=== PATIENT | female | born 1930 | race Hispanic/Latino ===

== ENCOUNTER 2017-07-02 19:49 | Inpatient (IN) | payer MEDICARE, OTHER ==
[2017-07-02 19:56] VITALS: BMI 24.7
[2017-07-02] MEDS ORDERED: Morphine 4 mg/ml ISec IVP STA (20:42)
[2017-07-02] MEDS ORDERED: Vancomycin 1gm in NS 250ml 1 GM/250 ML BAG IVPB STA (21:06)
[2017-07-02 21:15] LABS: VENOUS BLOOD GAS BASE EXCESS 1.7 mmol/L (0.0-2.0); VENOUS BLOOD PH 7.53 (7.32-7.43)
[2017-07-02 21:17] LABS: BASO # 0.03 K/mm3 (0.0-2.0); BASO % 0.5 % (0.0-3.0); EOS % 0.3 % (1.5-5.0); GRAN # 3.53 (1.4-6.5); GRAN % 55.2 % (50.0-68.0); HEMATOCRIT 41.8 % (36.0-48.0); LYMPH # 1.3 (1.2-3.4); LYMPH % 20.5 % (22.0-35.0); MEAN CELL VOLUME 88.7 fl (80.0-105.0); MEAN CORPUSCULAR HEMOGLOBIN 30.4 pg (25.0-35.0); MEAN CORPUSCULAR HGB CONC 34.2 g/dl (31.0-37.0); MEAN PLATELET VOLUME 10.4 fl (7.0-11.0); MONO # 1.5 (0.1-0.6); MONO % 23.5 % (1.0-6.0); PLATELET COUNT 257 10^3/uL (120.0-450.0); RED CELL DISTRIBUTION WIDTH 14.5 % (11.5-14.5); WHITE BLOOD COUNT 6.4 10^3/ul (4.5-11.0)
[2017-07-02 21:23] LABS: ALB/GLOB RATIO 1.3 (1.1-1.8); ALKALINE PHOSPHATASE 132 U/L (38-126); ALT/SGPT 23 U/L (7-56); AST/SGOT 30 U/L (14-36); BILIRUBIN,TOTAL 1.4 mg/dL (0.2-1.3); BLOOD UREA NITROGEN 13 mg/dL (7-21); CALCIUM 9.3 mg/dL (8.4-10.5); CARBON DIOXIDE 22 mmol/L (21-33); CHLORIDE 104 mmol/L (98-107); GFR AFRICAN-AMERICAN > 60; GLUCOSE,RANDOM 123 mg/dL (70-110); SODIUM 140 mmol/L (132-148); TOTAL PROTEIN 7.4 g/dL (5.8-8.3); URIC ACID 3.8 mg/dL (2.5-6.2)
[2017-07-02 21:25] LABS: INR 1.13 (0.93-1.08); PARTIAL THROMBOPLASTIN TIME 31.8 Seconds (23.7-30.8)
[2017-07-02 21:53] LABS: BAND 6 % (0-2); BASOPHIL 1 % (0.0-1.0); NEUTROPHIL 57 % (50.0-70.0); PLATELET ESTIMATE NORMAL (NORMAL)
--- NOTE | 2017-07-02 22:00 | ED PDOC ---
Arrival/HPI - General Chief Complaint: Finger,Hand,&Wrist Time Seen by Provider: 07/02/17 20:00 Historian: Patient - History of Present Illness Narrative History of Present Illness (Text): 07/02/17 21:59 87 yo F h/o gout, breast ca, s/p R mastectomy, presents for 3 day h/o atraumatic L wrist swelling, pain and redness. Patient reports having a fever the day prior to the onset of her symptoms. Otherwise: (-) cough, (-) sore throat, (-) URI symptoms, (-) SOB, (-) chest pain, (-) N/V/D, (-) abdominal pain , (-) flank pain, (-) urinary symptoms, (-) recent travel, (-) sick contacts, (- ) rash. PMD [place] Past Medical History - Provider Review Nursing Documentation Reviewed: Yes - Infectious Disease Hx of Infectious Diseases: None - Cardiac Hx Hypertension: Yes Hx Pacemaker: No - Pulmonary Hx Respiratory Disorders: No - Neurological Hx Paralysis: No - HEENT Hx HEENT Disorder: No - Renal Hx Renal Disorder: No - Endocrine/Metabolic Hx Endocrine Disorders: No Hx Hypothyroidism: Yes - Hematological/Oncological Hx Cancer: (BREAST) - Integumentary Hx Dermatological Disorder: No - Musculoskeletal/Rheumatological Hx Arthritis: Yes Hx Falls: Yes Hx Gout: Yes - Gastrointestinal Hx Gastrointestinal Disorders: No - Genitourinary/Gynecological Hx Genitourinary Disorders: No - Psychiatric Hx Emotional Abuse: No Hx Physical Abuse: No Hx Substance Use: No - Surgical History Hx Mastectomy: Yes (RIGHT) - Anesthesia Hx Anesthesia Reactions: No Hx Malignant Hyperthermia: No - Suicidal Assessment Feels Threatened In Home Enviroment: No Family/Social History - Physician Review Nursing Documentation Reviewed: Yes Family/Social History: No Known Family HX Smoking Status: Never Smoked Hx Alcohol Use: No Hx Substance Use: No Allergies/Home Meds Allergies/Adverse Reactions: Allergies levofloxacin [From Levaquin] Allergy (Verified 03/22/16 22:48) ANAPHYLAXIS Home Medications: Home Meds Medication Instructions Recorded Confirmed Acetylcyst/Uonwbuw28/Levomefol 1 tab PO DAILY 07/02/17 07/02/17 [Metafolbic Plus Caplet] Aspirin [Adult Low Dose Aspirin EC] 1 tab PO DAILY 07/02/17 07/02/17 Atorvastatin [Lipitor] 1 tab PO DAILY 07/02/17 07/02/17 Cholecalciferol (Vitamin D3) 1 tab PO DAILY 07/02/17 07/02/17 [Vitamin D3] Donepezil [Aricept] 1 tab PO DAILY 07/02/17 07/02/17 Escitalopram [Lexapro] 1 tab PO DAILY 07/02/17 07/02/17 Febuxostat [Uloric] 1 tab PO DAILY 07/02/17 07/02/17 Levothyroxine [Synthroid] 1 tab PO DAILY 07/02/17 07/02/17 Memantine [Namenda] 1 tab PO BID 07/02/17 07/02/17 Nebivolol [Bystolic] 1 tab PO DAILY 07/02/17 07/02/17 Olmesartan [BenicarNf] 1 tab PO DAILY 07/02/17 07/02/17 Pantoprazole Sodium [Protonix] 1 tab PO DAILY 07/02/17 07/02/17 Potassium Chloride [Klor-Con 1 tab PO TID 07/02/17 07/02/17 Sprinkle] Review of Systems - Review of Systems Constitutional: Normal. absent: Fatigue, Weight Change, Fevers Respiratory: Normal. absent: SOB, Cough, Sputum Cardiovascular: Normal. absent: Chest Pain, Palpitations, Edema Gastrointestinal: Normal. absent: Abdominal Pain, Diarrhea, Vomiting Musculoskeletal: Normal, Arthralgias, Joint Swelling. absent: Back Pain Skin: Normal. absent: Rash, Pruritis, Skin Lesions Neurological: Normal. absent: Headache, Dizziness, Focal Weakness Physical Exam - Physical Exam Narrative Physical Exam (Text): 07/02/17 22:00 GENERAL APPEARANCE: Patient is awake, alert, oriented x 3, in moderate painful distress. SKIN: Warm, dry; (-) cyanosis, (-) rash. (-) Decubitus Ulcer EYES: (-) conjunctival pallor, (-) scleral icterus, (-) conjunctival hemorrhage. ENMT: Mucous membranes dry. TMs: (-) erythema. Airway patent: (-) stridor. Pharynx: (-) erythema, (-) exudate. NECK: (-) tenderness, (-) stiffness, (-) meningismus, (-) lymphadenopathy. CHEST AND RESPIRATORY: (-) accessory muscle use. Lungs: (-) rales, (-) rhonchi, (-) wheezes, (-) rub; breath sounds equal bilaterally. HEART AND CARDIOVASCULAR: (-) irregularity; (-) murmur, (-) gallop, (-) rub. ABDOMEN AND GI: Soft; (-) tenderness, (-) guarding; (-) organomegaly; (-) mass ; (-) CVA tenderness. EXTREMITIES: L WRIST: (+) Tenderness, (+) swelling, (+) redness, (+) warm to touch, (-) ecchymosis, (-) lymphangitis, (-) deformity, (+) limited ROM secondary to pain, (-) distal neurovascular deficit. Elbow, hand and digits: (-) tenderness, (-) deformity, (-) edema. NEURO AND PSYCH: Mental status as above; (-) focal findings. Vital Signs Temp Pulse Resp BP Pulse Ox 07/03/17 00:52 97.7 F 69 18 149/78 98 07/02/17 21:15 103.2 F H 07/02/17 21:04 103.5 F H 07/02/17 20:28 99 F 80 24 125/70 100 Medical Decision Making ED Course and Treatment: 07/02/17 21:57 87 yo F h/o gout, breast ca, s/p R mastectomy, presents for 3 day h/o atraumatic L wrist swelling, pain and redness. DDx : cellulitis, gout, r/o septic arthritis Plan: -- Labs -- IV fluids -- Urinalysis -- EKG -- CXR -- Morphine / Zofran -- Reassess and disposition -- XR L wrist -- Rectal temp Rectal T 103.5. VBG, tylenol 650 mg PO and vancomycin 1 g IV ordered. XR L wrist: mild djd, no fracture, no dislocation, as read by PERCY CXR : NAD, as read by PERCY EKG: NSR at _ bpm, (-) acute ST changes, as read by PA. Labs reviewed : WBC 6, + bands, lactate 1.6. On re-evaluation, patient is resting in bed in no acute distress, has no other complaints, reports mild improvement of pain. Based on history, exam and diagnostic results plan will be for inpatient admission. Patient and family notified of likely diagnosis of cellulitis, r/o septic arthritis. Case d/w Dr. Kline, agree with plan for admission, request Dr. Dockery for ortho consult. Call placed to Dr. Dockery. vice president biostatistics notified of admission and case was discussed. Patient and family state they fully agrees with and understands further plan of care. I have given the patient and family the opportunity to ask any additional questions. UA : +UTI, urine culture pending. Rocephin 1 g IV ordered for UTI. VS : T97.7 P 69 BP 149/78 R 18 O2sat 98%RA. Patient remains awake, alert and oriented x3, in no acute distress. - Lab Interpretations Lab Results: 07/02/17 20:50 07/02/17 20:50 Lab Results 07/02/17 22:10: Urine Color Yellow, Urine Appearance Sl cloudy, Urine pH 8.0, Ur Specific [place] 1.015, Urine Protein 30 H, Urine Glucose (UA) Negative, Urine Ketones 15 H, Urine Blood Large H, Urine Nitrate Negative, Urine Bilirubin Negative, Urine Urobilinogen 1.0 H, Ur Leukocyte Esterase Small H, Urine RBC 2 - 5, Urine WBC 20 - 25, Ur Epithelial Cells 1 - 3, Amorphous Sediment Few, Urine Bacteria Many 07/02/17 20:50: ESR 50 H 07/02/17 20:50: pO2 70 H, VBG pH 7.53 H, VBG pCO2 28.0 L, VBG HCO3 23.4, VBG Total CO2 24.3, VBG O2 Sat (Calc) 97.8 H, VBG Base Excess 1.7, VBG Potassium 4.0 , Sodium 138.0, Chloride 104.0, Glucose 126 H, Lactate 1.9, FiO2 21.0, Venous Blood Potassium 4.0 07/02/17 20:50: Sodium 140, Chloride 104, Potassium 4.0, Carbon Dioxide 22, Anion Gap 18, BUN 13, Creatinine 1.0, Est GFR ( Amer) > 60, Est GFR (Non- Af Amer) 52, Random Glucose 123 H, Uric Acid 3.8, Calcium 9.3, Total Bilirubin 1.4 H, AST 30, ALT 23, Alkaline Phosphatase 132 H, Total Protein 7.4, Albumin 4.2, Globulin 3.2, Albumin/Globulin Ratio 1.3 07/02/17 20:50: PT 12.2 H, INR 1.13 H, APTT 31.8 H 07/02/17 20:50: WBC 6.4, RBC 4.71, Hgb 14.3, Hct 41.8, MCV 88.7, MCH 30.4, MCHC 34.2, RDW 14.5, Plt Count 257, MPV 10.4, Gran % 55.2, Lymph % (Auto) 20.5 L, [place] % (Auto) 23.5 H, Eos % (Auto) 0.3 L, Baso % (Auto) 0.5, Gran # 3.53, Lymph # 1.3, [place] # 1.5 H, Eos # 0.0, Baso # 0.03, Neutrophils % (Manual) 57, Band Neutrophils % 6 H, Lymphocytes % (Manual) 18 L, Monocytes % (Manual) 18 H, Basophils % (Manual) 1, Platelet Evaluation Normal - RAD Interpretation Radiology Orders: 07/02/17 20:43 CHEST TWO VIEWS (PA/LAT) [RAD] Stat WRIST, LEFT 3 VIEWS [RAD] Stat - Medication Orders Current Medication Orders: Discontinued Medications Acetaminophen (Tylenol 325mg Tab) 650 mg PO STAT STA Stop: 07/02/17 21:07 Last Admin: 07/02/17 21:15 Dose: 650 mg MAR Pain/Vitals Document 07/02/17 21:15 EKEOO (Rec: 07/02/17 21:16 EKEOO [id number]) Pain Reassessment Is This A Pain ReAssessment? No Sleep Is patient sleeping during reassessment? No Presence of Pain Presence of Pain Yes Location Left, Right or Bilateral Left Pain Location Body Site Elbow Description Constant Pain Behavior Moaning Crying Vitals Temperature (97.6 F-99.6 F) 103.2 F Temperature Source Rectal Colchicine (Colocrys) 0.6 mg PO STAT STA Stop: 07/02/17 23:23 Last Admin: 07/03/17 00:08 Dose: 0.6 mg Vancomycin HCl (Vancomycin 1gm) 1 gm in 250 mls @ 167 mls/hr IVPB STAT STA PRN Reason: Protocol Stop: 07/02/17 22:35 Last Admin: 07/02/17 22:50 Dose: 167 mls/hr eMAR Start Stop Document 07/02/17 22:50 EKEOO (Rec: 07/03/17 00:08 EKEOO [id number]) Intravenous Solution Start Date 07/02/17 Start Time 22:50 Methylprednisolone (Solu-Medrol) 40 mg IVP STAT STA Stop: 07/02/17 23:22 Last Admin: 07/03/17 00:08 Dose: 40 mg IVP Administration Document 07/03/17 00:08 EKEOO (Rec: 07/03/17 00:08 EKEOO [id number]) Charges for Administration # of IVP Administrations 1 Morphine Sulfate (Morphine) 4 mg IVP STAT STA Stop: 07/02/17 20:43 Last Admin: 07/02/17 21:14 Dose: 4 mg MAR Pain Assessment Document 07/02/17 21:14 EKEOO (Rec: 07/02/17 21:15 EKEOO [id number]) Pain Reassessment Is this a pain reassessment? No Sleep Is patient sleeping during reassessment? No Presence of Pain Presence of Pain Yes Location Left, Right or Bilateral Left Pain Location Body Site Elbow Wrist Description Description Constant Pain Behavior Moaning IVP Administration Document 07/02/17 21:14 EKEOO (Rec: 07/02/17 21:15 EKEOO [id number]) Charges for Administration # of IVP Administrations 1 Ondansetron HCl (Zofran Inj) 4 mg IVP STAT STA Stop: 07/02/17 20:43 Last Admin: 07/02/17 21:15 Dose: 4 mg IVP Administration Document 07/02/17 21:15 EKEOO (Rec: 07/02/17 21:15 EKEOO [id number]) Charges for Administration # of IVP Administrations 1 - PA / WHEEL BRAIDER / Resident Statement MD/DO has reviewed & agrees with the documentation as recorded. Disposition/Present on Arrival - Present on Arrival Any Indicators Present on Arrival: No History of DVT/PE: No History of Uncontrolled Diabetes: No Urinary Catheter: No History of Decub. Ulcer: No History Surgical Site Infection Following: None - Disposition Have Diagnosis and Disposition been Completed?: Yes Diagnosis: Cellulitis, UTI (urinary tract infection) Disposition: HOSPITALIZED Disposition Time: 21:45 Patient Plan: Admission Patient Problems: Current Active Problems Problem Status Onset Cellulitis Acute UTI (urinary tract infection) Acute Condition: STABLE
[2017-07-02] MEDS ORDERED: MethylPREDNISolone 40 mg Vial IVP STA (23:21)
[2017-07-03 00:20] LABS: URINE APPEARANCE SL CLOUDY (CLEAR); URINE BILIRUBIN NEGATIVE (NEGATIVE); URINE BLOOD LARGE (NEGATIVE); URINE COLOR YELLOW (YELLOW); URINE GLUCOSE (UA) NEGATIVE (NEGATIVE); URINE KETONE 15 mg/dL (NEGATIVE); URINE LEUKOCYTE ESTERASE SMALL Leu/uL (NEGATIVE); URINE PROTEIN 30 mg/dL (<30 mg/dL)
[2017-07-03 00:29] LABS: URINE WBC 20 - 25 /hpf (0-6)
[2017-07-03 00:30] LABS: URINE AMORPHOUS SEDIMENT FEW; URINE BACTERIA MANY (NEG)
[2017-07-03] MEDS ORDERED: cefTRIAXone 1 gm 1 GM/100 ML BAG IVPB STA (00:57)
[2017-07-03] MEDS: Sodium Chloride 0.9% 1,000 ML IV SCH ×2 (02:02→17:44)
[2017-07-03] MEDS ORDERED: Morphine 2 mg/ml ISec IVP PRN (06:10)
--- NOTE | 2017-07-03 06:18 | CP.PCM.HP ---
History of Present Illness - History of Present Illness History of Present Illness: Chief Complaint Pain in left forearm and hand HPI Patient is an 87 year old white female with a past medical history of gout, HLD , hypothyroidism, HTN, breast ca who presents to [facility] on 07/02/17 with complaints of left hand pain which started with a fever of 102 F on 06/30/17, patient took Percocet as per patients family friend and felt 100% better the following day. However on 07/02/17 patient was feeling very ill and complained of pain radiating from the tip of her fingers all the way to her shoulder of her left upper extremity. As per patients family patient was in severe pain despite Percocet, which prompted them to bring her to the ED. They also mentioned immediate swelling of her left hand which appeared suddenly. Patient denies fever, chills, n/v/d, shortness of breath, chest pain, dysuria, dizziness, weakness. PMD: Dr. Reyna Social History: denies tobacco use, denies alcohol consumption, denies illicit drug use Family history: non- contributory Surgical history: Orthopedic surgery (pins in left arm) Allergies: Levaquin Present on Admission - Present on Admission Any Indicators Present on Admission: No Review of Systems - Constitutional Constitutional: Fever - EENT Eyes: absent: Blurred Vision, Change in Vision - Cardiovascular Cardiovascular: absent: Chest Pain, Dyspnea, Palpitations - Respiratory Respiratory: absent: Cough, Dyspnea - Gastrointestinal Gastrointestinal: absent: Abdominal Pain, Diarrhea, Nausea, Vomiting - Genitourinary Genitourinary: absent: Difficulty Urinating, Dysuria - Musculoskeletal Musculoskeletal: Deformity (tophous formation on left wrist and PIP joints of left hand), Joint Swelling (left upper extremity) - Integumentary Integumentary: absent: Skin Ulcer, Sores - Neurological Neurological: absent: Dizziness, Numbness, Headaches - Psychiatric Psychiatric: absent: Confusion, Hallucinations - Endocrine Endocrine: absent: Fatigue, Palpitations Past Patient History - Infectious Disease Hx of Infectious Diseases: None - Past Social History Smoking Status: Never Smoked - CARDIAC Hx Cardiac Disorders: Yes Hx Hypercholesterolemia: Yes Hx Hypertension: Yes - PULMONARY Hx Respiratory Disorders: No - NEUROLOGICAL Hx Neurological Disorder: No - HEENT Hx HEENT Problems: No - RENAL Hx Chronic Kidney Disease: No - ENDOCRINE/METABOLIC Hx Endocrine Disorders: Yes Hx Hypothyroidism: Yes - HEMATOLOGICAL/ONCOLOGICAL Hx Blood Disorders: Yes Hx Cancer: Yes (breast CA) - INTEGUMENTARY Hx Dermatological Problems: No - MUSCULOSKELETAL/RHEUMATOLOGICAL Hx Musculoskeletal Disorders: Yes Hx Arthritis: Yes Hx Falls: Yes Hx Gout: Yes - GASTROINTESTINAL Hx Gastrointestinal Disorders: No - GENITOURINARY/GYNECOLOGICAL Hx Genitourinary Disorders: Yes Hx Urinary Tract Infection: Yes - PSYCHIATRIC Hx Psychophysiologic Disorder: No - SURGICAL HISTORY Hx Surgeries: Yes (right mastectomy) - ANESTHESIA Hx Anesthesia Reactions: No Hx Malignant Hyperthermia: No Meds Allergies/Adverse Reactions: Allergies Allergy/AdvReac Type Severity Reaction Status Date / Time levofloxacin [From Levaquin] Allergy ANAPHYLAXIS Verified 03/22/16 22:48 Physical Exam - Constitutional Appears: No Acute Distress - Head Exam Head Exam: ATRAUMATIC, NORMAL INSPECTION, NORMOCEPHALIC - Eye Exam Eye Exam: EOMI, Normal appearance - ENT Exam ENT Exam: Mucous Membranes Moist, Normal Exam - Neck Exam Neck exam: Positive for: Normal Inspection - Respiratory Exam Respiratory Exam: Clear to Auscultation Bilateral, NORMAL BREATHING PATTERN - Cardiovascular Exam Cardiovascular Exam: REGULAR RHYTHM, +S1, +S2 - GI/Abdominal Exam GI & Abdominal Exam: Normal Bowel Sounds, Soft. absent: Distended, Firm - Expanded Upper Extremities Exam Left Forearm Wrist exam: deformity (tophous formation in wrist and PIP joints of left hand), erythema, swelling, tenderness. absent: normal inspection - Neurological Exam Neurological exam: Alert, CN II-XII Intact, Oriented x3 - Psychiatric Exam Psychiatric exam: Normal Affect, Normal Mood - Skin Skin Exam: Erythema (left hand), Warm (left hand very warm) Results - Vital Signs Recent Vital Signs: Last Vital Signs Temp 98.7 F 07/03/17 01:25 Pulse 67 07/03/17 01:25 Resp 18 07/03/17 01:25 BP 150/84 07/03/17 01:25 Pulse Ox 98 07/03/17 00:52 - Labs Result Diagrams: 07/03/17 06:00 07/03/17 06:00 Assessment & Plan - Assessment and Plan (Free Text) Assessment: Assessment 87 year old female presenting to [facility] with complaints of left wrist swelling, with complaints of finger, hand and wrist pain. Plan 1. Gout attack -Colchicine 0.6 mg STAT - Solu-medrol 40 mg IV STAT - Colchicine 0.6 qD - Prednisone 40 mg qD - D/C today with home prescriptions for continued treatment of gout 2. Hyperlipidemia -Atorvastatin 3. History of Breast ca - No acute intervention at this time 4. HTN - Hydralazine PRN 5. Hypothyroidism -Levothyroid
[2017-07-03 06:30] LABS: BASO # 0.01 K/mm3 (0.0-2.0); BASO % 0.2 % (0.0-3.0); GRAN # 3.1 (1.4-6.5); GRAN % 56.9 % (50.0-68.0); LYMPH % 18.9 % (22.0-35.0); MEAN CELL VOLUME 89.9 fl (80.0-105.0); MEAN CORPUSCULAR HEMOGLOBIN 30.3 pg (25.0-35.0); MEAN CORPUSCULAR HGB CONC 33.7 g/dl (31.0-37.0); MEAN PLATELET VOLUME 10.6 fl (7.0-11.0); MONO # 1.3 (0.1-0.6); RED CELL DISTRIBUTION WIDTH 14.8 % (11.5-14.5); WHITE BLOOD COUNT 5.5 10^3/ul (4.5-11.0)
[2017-07-03 06:59] LABS: ALB/GLOB RATIO 1.2 (1.1-1.8); ALKALINE PHOSPHATASE 111 U/L (38-126); ALT/SGPT 21 U/L (7-56); AST/SGOT 29 U/L (14-36); BILIRUBIN,TOTAL 0.9 mg/dL (0.2-1.3); BLOOD UREA NITROGEN 12 mg/dL (7-21); CALCIUM 8.7 mg/dL (8.4-10.5); CARBON DIOXIDE 23 mmol/L (21-33); CHLORIDE 106 mmol/L (98-107); GFR AFRICAN-AMERICAN > 60; GLUCOSE,RANDOM 178 mg/dL (70-110); POTASSIUM 3.9 mmol/L (3.6-5.0); SODIUM 142 mmol/L (132-148); TOTAL PROTEIN 7.1 g/dL (5.8-8.3); URIC ACID 3.6 mg/dL (2.5-6.2)
--- NOTE | 2017-07-03 08:38 | RAD ---
HISTORY: L wrist pain COMPARISON: No prior. TECHNIQUE: Chest PA and lateral FINDINGS: LUNGS: There are low lung volumes. No focal consolidation. PLEURA: No significant pleural effusion identified. No pneumothorax apparent. CARDIOVASCULAR: Normal. OSSEOUS STRUCTURES: No significant abnormalities. VISUALIZED UPPER ABDOMEN: Normal. OTHER FINDINGS: None. IMPRESSION: No active pulmonary disease.
[2017-07-03] MEDS: Levothyroxine 112 MCG TAB PO SCH (08:53)
--- NOTE | 2017-07-03 08:53 | RAD ---
PROCEDURE: Left Wrist Radiographs. HISTORY: pain COMPARISON: None. FINDINGS: BONES: Degenerative changes are seen at the base of the thumb. There are some calcifications in the region of the triangular fibrocartilage. No acute fracture JOINTS: Normal. No dislocation. SOFT TISSUES: Normal. OTHER FINDINGS: None. IMPRESSION: Degenerative changes are seen at the base of the thumb. There are some calcifications in the region of the triangular fibrocartilage. No acute fracture
--- NOTE | 2017-07-03 09:24 | CON ---
INPATIENT CONSULT DATE: 07/03/2017 REASON FOR CONSULT: Left wrist pain. HISTORY OF PRESENT ILLNESS: This is an 87-year-old female who was admitted yesterday with complaints of left wrist pain for two days. She denies any history of any trauma. She denies any fevers. She denies prior history of gout. She denies any numbness or tingling in the hand. PHYSICAL EXAMINATION: GENERAL: This is an elderly female in no apparent distress. EXTREMITIES: Evaluation of the left wrist shows she does have some obvious swelling about the dorsum of her left wrist. She has no significant erythema appreciated over this area. However, she has significant tenderness to touch. She also has some pain with passive range of motion of the left wrist. She is nontender over her hand and is able to move her fingers. She does look like she does have some chronic degenerative changes in multiple joints, particularly the third PIP joint. Grossly, she is neurovascularly intact. She is nontender over her forearm or elbow and is tolerating some range of motion of the elbow without significant pain. She is also tolerating some passive range of motion of the shoulder without any pain. LABORATORY DATA: X-rays of the left wrist show no obvious fracture dislocation, but significant degenerative changes at, particularly at the radiolunate facet. She also has advanced degenerative changes at the first carpometacarpal joint. Significant degenerative changes also noted in the fingers particularly at the third PIP joint. IMPRESSION: Left wrist pain, swelling, and arthritis. PLAN: She did have uric acid and serum uric acid was within normal limits. She was started on some Colchicine. She is also on antibiotics for possible cellulitis. For now, recommended continue pain medication as needed. We will follow her clinically for now and if she shows no improvement, we will consider an MRI of the left wrist. Akin Escudero MD
[2017-07-03] MEDS: cefTRIAXone 1 gm 1 GM/100 ML BAG IVPB SCH (15:21)
[2017-07-03] MEDS: Vancomycin 1gm in NS 250ml 1 GM/250 ML BAG IVPB SCH (15:22)
--- NOTE | 2017-07-03 15:51 | CON ---
DATE: 07/03/2017 She was seen earlier today in #[id number], bed #1. CHIEF COMPLAINT: The patient is complaining of a wrist erythema times several days. HISTORY OF PRESENT ILLNESS: This is an 87-year-old female with past medical history significant for gout, hyperlipidemia, hypothyroidism, hypertension, breast cancer, admitted with a left hand and left wrist pain and erythema. She is a poor historian, unable to give accurate history and there has been no fevers reported, no chills reported. No chest pain. No abdominal pain, diarrhea or constipation. No bright red blood per rectum. No melena. PAST MEDICAL HISTORY: Significant for breast cancer, gout, hyperlipidemia, hypothyroidism and urinary tract infections. PAST SURGICAL HISTORY: Significant for right mastectomy. The patient has no known recent travel. ALLERGIES: SHE IS ALLERGIC TO LEVAQUIN. MEDICATIONS AT HOME: Include Aricept, Protonix, vitamin D3, Lipitor, aspirin, Namenda, Synthroid and Lexapro. PHYSICAL EXAMINATION: GENERAL: The patient is in bed, appears nontoxic; however, she is unable to state her age and what year it is. VITAL SIGNS: The patient does have a temperature of 98, T-max is 103.2 with a heart rate of 69, respiratory rate of 22 to 24, blood pressure of 169/80 and O2 saturation is 94%. HEENT: Unremarkable. NECK: Supple. LUNGS: Decreased breath sounds. HEART: Exam reveals normal S1 and S2. EXTREMITIES: Examination of left wrist reveals erythema. She is able to flex and extend her left thumb ; however, there is erythema over the left hand. No break in the skin. There is no discharge. It is erythematous and there is edema and tender. LABORATORY EXAMINATION: Reveals a white count of 6.4, hemoglobin of 14 and sed rate is 50. Coagulation is noted. BUN is 13, creatinine of 1.0, glucose is 123, bilirubin is 1.4, alk phos is 132. Urinalysis reveals 20 to 25 wbc's. Microbiology is pending. Dr. Escudero's consultation is reviewed and appreciated, and he assured the patient has solely an arthritis and Dr. Kline's history and physical examination is noted. The patient had a chest x-ray with no focal consolidation and x-ray of the left wrist reveals no fractures. ASSESSMENT AND PLAN: An 87-year-old female with a history of gout, hyperlipidemia, hypothyroidism, hypertension, breast cancer, urinary tract infection with a fever of 103, tachycardia and left wrist erythema with sepsis with left wrist cellulitis, must rule out left wrist septic arthritis. We will check on the MRI if indicated on synovial fluid evaluation and we will start the patient on vancomycin and ceftriaxone, must rule out gouty arthritis although the uric acid is within normal limits and we will follow closely with you. Pending blood cultures and urine cultures and MRI of the wrist and orthopedic evaluation is appreciated. Timothy Win MD
--- NOTE | 2017-07-03 20:11 | MRI ---
EXAM: MR Left Upper Extremity Without Intravenous Contrast, Wrist EXAM DATE/TIME: 07/03/2017 10:36 AM CLINICAL HISTORY: The patient age is 87 years old and is female; Signs and symptoms; Swelling; Wrist; Left; Patient HX: No trauma, left wrist swelling and pain; Additional info: Rule out osteo Facility exam id and description: Mri wristwoclt wrist w/o contrast lt TECHNIQUE: Multiplanar magnetic resonance images of the left wrist without intravenous contrast. COMPARISON: DX - WRIST, LEFT 3 VIEWS 07/02/2017 10:47:32 PM FINDINGS: LIGAMENTS: Scapholunate: There is a tear of the scapholunate ligament, with widening of the scapholunate joint space. Lunotriquetral: The lunotriquetral ligament is incompletely visualized, suggestive of tear. Fluid surrounds the dorsal complex ligament, and ligament sprain cannot be excluded. TENDONS: Flexor compartments:Fluid is visualized adjacent to the flexor tendons of the wrist, suggestive of tenosynovitis. Extensor compartments:Mild fluid is visualized adjacent to the extensor carpi radialis longus and brevis tendons as well as the extensor pollicis longus tendon, consistent with tenosynovitis. NERVES: Median: Edema is identified within the median nerve. Ulnar: The ulnar nerve is poorly visualized. Fluid: Fluid collections are seen at the dorsum of the wrist and surrounding the distal ulna, consistent with synovial or ganglion cysts. An infectious etiology cannot be excluded. Dorsal to the wrist, the largest fluid collection measures 3.7 x 0.7 x 1.1 cm. An additional subcentimeter fluid collection is identified lateral to the wrist. There is lateral extension of effusions at the radioscaphoid joint and scaphoid-trapezium joint. Triangular fibrocartilage complex:Tears are identified of the ulnar attachments of the TFC complex. Bones/joints: There is proximal migration of the capitate bone into the scapholunate joint, consistent with SLAC wrist (scapholunate advanced collapse). Edema is identified within the scaphoid bone and distal radius. This is likely reactive to arthropathy, although osteomyelitis is within the differential. There is advanced arthropathy of the basal joint, with cystic change within the bone marrow of the proximal first metacarpal bone. There is narrowing of the radiocarpal joint space, consistent with arthropathy. Scattered carpal cysts are identified. Small cysts are identified within the distal ulna. There is mild subluxation of the first metacarpal bone at the basal joint. There is cortical irregularity of the distal radius and ulna. There is significant spurring of the scaphoid bone. There is abnormal morphology of the lunate bone. Soft tissues: There is significant soft tissue swelling of the wrist, significant dorsally. This is consistent with cellulitis in the appropriate clinical setting. IMPRESSION: 1. Tears are identified of the ulnar attachments of the TFC complex. 2. There is a tear of the scapholunate ligament, with widening of the scapholunate joint space. 3. There is proximal migration of the capitate bone into the scapholunate joint, consistent with SL[facility] wrist (scapholunate advanced collapse). 4. Edema is identified within the scaphoid bone and distal radius. This is likely reactive to arthropathy, although osteomyelitis is within the differential. 5. 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 There is mild subluxation of the first metacarpal bone at the basal joint. 6. The lunotriquetral ligament is incompletely visualized, suggestive of tear. Fluid surrounds the dorsal complex ligament, and ligament sprain cannot be excluded. 7. There is significant soft tissue swelling of the wrist, significant dorsally. This is consistent with cellulitis in the appropriate clinical setting. 8. Mild fluid is visualized adjacent to the extensor carpi radialis longus and brevis tendons as well as the extensor pollicis longus tendon, consistent with tenosynovitis. Fluid is also visualized adjacent to the flexor tendons of the wrist, suggestive of tenosynovitis. 9. Fluid collections are seen at the dorsum of the wrist and surrounding the distal ulna, consistent with synovial or ganglion cysts. An infectious etiology cannot be excluded. An additional subcentimeter fluid collection is identified lateral to the wrist. 10. There is narrowing of the radiocarpal joint space, consistent with arthropathy. 11. Additional findings described above.
--- NOTE | 2017-07-03 21:33 | CARD ---
APPROVED REPORT EKG Measurement Heart [id number] <Conclusion> Normal sinus rhythm Possible Left atrial enlargement Borderline ECG
[2017-07-04] MEDS: Levothyroxine 112 MCG TAB PO SCH (06:23)
[2017-07-04] MEDS: Vancomycin 1gm in NS 250ml 1 GM/250 ML BAG IVPB SCH ×2 (06:23→14:27)
[2017-07-04 06:51] LABS: HEMATOCRIT 37.4 % (36.0-48.0); MEAN CELL VOLUME 89.9 fl (80.0-105.0); MEAN CORPUSCULAR HEMOGLOBIN 29.3 pg (25.0-35.0); MEAN CORPUSCULAR HGB CONC 32.6 g/dl (31.0-37.0); RED CELL DISTRIBUTION WIDTH 15.1 % (11.5-14.5); WHITE BLOOD COUNT 7.2 10^3/ul (4.5-11.0)
[2017-07-04 07:11] LABS: ALB/GLOB RATIO 1.1 (1.1-1.8); ALKALINE PHOSPHATASE 91 U/L (38-126); ALT/SGPT 31 U/L (7-56); AST/SGOT 36 U/L (14-36); BILIRUBIN,TOTAL 0.6 mg/dL (0.2-1.3); BLOOD UREA NITROGEN 20 mg/dL (7-21); CALCIUM 8.9 mg/dL (8.4-10.5); CARBON DIOXIDE 25 mmol/L (21-33); CHLORIDE 109 mmol/L (95-110); GFR AFRICAN-AMERICAN > 60; GLUCOSE,RANDOM 118 mg/dL (70-110); POTASSIUM 3.9 mmol/L (3.6-5.0); SODIUM 143 mmol/L (132-148); TOTAL PROTEIN 6.2 g/dL (5.8-8.3)
[2017-07-04] MEDS ORDERED: MethylPREDNISolone 40 mg Vial IVP STA (09:50)
[2017-07-04] MEDS: cefTRIAXone 1 gm 1 GM/100 ML BAG IVPB SCH (09:57)
[2017-07-04] MEDS: Sodium Chloride 0.9% 1,000 ML IV SCH (09:59)
[2017-07-04] MEDS ORDERED: Vancomycin 1gm in NS 250ml 1 GM/250 ML BAG IVPB SCH (10:00)
[2017-07-04] MEDS ORDERED: cefTRIAXone 1 gm 1 GM/100 ML BAG IVPB SCH (10:00)
--- NOTE | 2017-07-04 10:00 | CP.PCM.PN ---
Subjective - Date & Time of Evaluation Date of Evaluation: 07/04/17 Time of Evaluation: 09:55 - Subjective Subjective: Pt feels a little better today. Afebrile L wrist: swelling appears better today less tender and active ROM of wrist improved pt able to make a fist grossly NVI distally MRI: cysts noted; degenerative changes noted chronic TFCC tears; edema in scaphoid Discussed treatment options. Pt wants to proceed with steroid inj in wrist. Risk and benefits discussed. L wrist inj with 20mg methylprednsiolone Pt hilary procedure well Pt currently on antibiotics. Objective - Vital Signs/Intake and Output Vital Signs (last 24 hours): Temp Pulse Resp BP Pulse Ox 97.7 F 62 20 150/70 95 07/04/17 06:00 07/04/17 06:00 07/04/17 06:00 07/04/17 06:00 07/04/17 06:00 Intake and Output: 07/04/17 07/04/17 06:59 18:59 Intake Total 780 Balance 780 - Medications Medications: Current Medications Aspirin (Ecotrin) 81 mg PO DAILY [facility] Last Admin: 07/03/17 09:58 Dose: 81 mg Atorvastatin Calcium (Lipitor) 40 mg PO DAILY [facility] Last Admin: 07/03/17 09:57 Dose: 40 mg Colchicine (Colocrys) 0.6 mg PO DAILY [facility] Last Admin: 07/03/17 09:57 Dose: 0.6 mg Donepezil HCl (Aricept) 10 mg PO DAILY [facility] Last Admin: 07/03/17 09:57 Dose: 10 mg Escitalopram Oxalate (Lexapro) 20 mg PO DAILY [facility] Last Admin: 07/03/17 09:57 Dose: 20 mg Sodium Chloride (Sodium Chloride 0.9%) 1,000 mls @ 100 mls/hr IV .Q10H [facility] Last Admin: 07/03/17 17:44 Dose: 100 mls/hr Ceftriaxone Sodium (Rocephin 1 Gram Ivpb) 1 gm in 100 mls @ 100 mls/hr IVPB DAILY [facility] PRN Reason: Protocol Stop: 07/13/17 14:31 Last Admin: 07/03/17 15:21 Dose: 100 mls/hr Vancomycin HCl (Vancomycin 1gm) 1 gm in 250 mls @ 167 mls/hr IVPB Q12H [facility] PRN Reason: Protocol Stop: 07/17/17 14:31 Last Admin: 07/04/17 06:23 Dose: 167 mls/hr Levothyroxine Sodium (Synthroid) 112 mcg PO 0600 [facility] Last Admin: 07/04/17 06:23 Dose: 112 mcg Memantine (Namenda) 5 mg PO BID [facility] Last Admin: 07/03/17 17:46 Dose: 5 mg Morphine Sulfate (Morphine) 2 mg IVP Q4H PRN PRN Reason: Pain, severe (8-10) Prednisone (Prednisone Tab) 40 mg PO DAILY [facility] Last Admin: 07/03/17 09:57 Dose: 40 mg - Labs Labs: 07/04/17 06:10 07/04/17 06:10 PT 12.2 Seconds (9.9-11.8) H 07/02/17 20:50 INR 1.13 (0.93-1.08) H 07/02/17 20:50 APTT 31.8 Seconds (23.7-30.8) H 07/02/17 20:50
--- NOTE | 2017-07-04 11:27 | CP.PCM.PN ---
<Russell Bailey - Last Filed: 07/04/17 13:16> Subjective - Date & Time of Evaluation Date of Evaluation: 07/04/17 Time of Evaluation: 06:00 - Subjective Subjective: Patient is an 87 year old white female with a past medical history of gout, HLD , hypothyroidism, HTN, breast ca who presents to [facility] ED on 07/02/17 with complaints of left hand pain which started with a fever of 102 F on 06/30/17, patient took Percocet as per patients family friend and felt 100% better the following day. However on 07/02/17 patient was feeling very ill and complained of pain radiating from the tip of her fingers all the way to her shoulder of her left upper extremity. As per patients family patient was in severe pain despite Percocet, which prompted them to bring her to the ED. They also mentioned immediate swelling of her left hand which appeared suddenly. Patient denied fever, chills, n/v/d, shortness of breath, chest pain, dysuria, dizziness, weakness. Patient was seen and evaluated at bedside. Patient still complaining of pain in the left wrist. Patient states she is unable to flex the wrist, and rotate. Patient denies any fever, chills, n/v/d, shortness of breath, chest pain, dysuria, dizziness, weakness or any other complaints. Objective - Vital Signs/Intake and Output Vital Signs (last 24 hours): Temp Pulse Resp BP Pulse Ox 97.7 F 62 20 150/70 95 07/04/17 06:00 07/04/17 06:00 07/04/17 06:00 07/04/17 06:00 07/04/17 06:00 Intake and Output: 07/04/17 07/04/17 06:59 18:59 Intake Total 780 240 Balance 780 240 - Medications Medications: Current Medications Aspirin (Ecotrin) 81 mg PO DAILY [facility] Last Admin: 07/04/17 09:59 Dose: 81 mg Atorvastatin Calcium (Lipitor) 40 mg PO DAILY [facility] Last Admin: 07/04/17 09:58 Dose: 40 mg Colchicine (Colocrys) 0.6 mg PO DAILY [facility] Last Admin: 07/04/17 09:58 Dose: 0.6 mg Donepezil HCl (Aricept) 10 mg PO DAILY [facility] Last Admin: 07/04/17 09:58 Dose: 10 mg Escitalopram Oxalate (Lexapro) 20 mg PO DAILY [facility] Last Admin: 07/04/17 09:58 Dose: 20 mg Sodium Chloride (Sodium Chloride 0.9%) 1,000 mls @ 100 mls/hr IV .Q10H [facility] Last Admin: 07/04/17 09:59 Dose: 100 mls/hr Ceftriaxone Sodium (Rocephin 1 Gram Ivpb) 1 gm in 100 mls @ 100 mls/hr IVPB DAILY [facility] PRN Reason: Protocol Stop: 07/13/17 14:31 Last Admin: 07/04/17 09:57 Dose: 100 mls/hr Vancomycin HCl (Vancomycin 1gm) 1 gm in 250 mls @ 167 mls/hr IVPB Q12H [facility] PRN Reason: Protocol Stop: 07/17/17 14:31 Last Admin: 07/04/17 06:23 Dose: 167 mls/hr Levothyroxine Sodium (Synthroid) 112 mcg PO 0600 [facility] Last Admin: 07/04/17 06:23 Dose: 112 mcg Memantine (Namenda) 5 mg PO BID [facility] Last Admin: 07/04/17 09:58 Dose: 5 mg Methylprednisolone (Solu-Medrol) 40 mg IM ONCE ONE Stop: 07/04/17 22:01 Morphine Sulfate (Morphine) 2 mg IVP Q4H PRN PRN Reason: Pain, severe (8-10) Last Admin: 07/04/17 10:11 Dose: 2 mg Prednisone (Prednisone Tab) 40 mg PO DAILY [facility] Last Admin: 07/04/17 09:58 Dose: 40 mg - Labs Labs: 07/04/17 06:10 07/04/17 06:10 PT 12.2 Seconds (9.9-11.8) H 07/02/17 20:50 INR 1.13 (0.93-1.08) H 07/02/17 20:50 APTT 31.8 Seconds (23.7-30.8) H 07/02/17 20:50 - Constitutional Appears: Non-toxic - Head Exam Head Exam: ATRAUMATIC, NORMAL INSPECTION, NORMOCEPHALIC - Eye Exam Eye Exam: Normal appearance, PERRL Pupil Exam: NORMAL ACCOMODATION - ENT Exam ENT Exam: Mucous Membranes Moist - Neck Exam Neck Exam: Normal Inspection. absent: Lymphadenopathy, Tenderness - Respiratory Exam Respiratory Exam: Clear to Ausculation Bilateral, NORMAL BREATHING PATTERN - Cardiovascular Exam Cardiovascular Exam: REGULAR RHYTHM, +S1, +S2 - GI/Abdominal Exam GI & Abdominal Exam: Normal Bowel Sounds. absent: Tenderness - Extremities Exam Extremities Exam: Joint Swelling, Tenderness Additional comments: swelling and tenderness of the left wrist, diffuculty in rotation, 2/5 strength in flexion - Back Exam Back Exam: NORMAL INSPECTION - Neurological Exam Neurological Exam: Alert, Awake, Oriented x3 - Psychiatric Exam Psychiatric exam: Normal Mood - Skin Skin Exam: Normal Color Assessment and Plan - Assessment and Plan (Free Text) Assessment: 87 year old female presenting to [facility] with complaints of left wrist swelling, with complaints of finger, hand and wrist pain. Patient is being worked up for rest pain. Plan: 1. Left wrist swilling and pain - secondary to possible cellulitis v acute gout flare - continue Colchicine 0.6 mg - continue Solu-medrol 40 mg - Patient currently afebrile, no leukocytosis - ESR elevated 54 - uric acid level 3.6 - blood culture showed no growth - MRI obtained showing tissue swelling, possible cellulitis - ID consulted, Audelia recommended antibiotic therapy for possible cellulitis - Started on vanc and Rocephin - ortho consulted Dr. Dockery-steroid injection given, continue pain medication Morphine prn - continue to monitor - PT evaluation and TCU evlaution ordered for OT 2. Hyperlipidemia - Atorvastatin 3. History of Breast ca - No acute intervention at this time 4. HTN - Hydralazine PRN 5. Hypothyroidism -Levothyroid 6. GI/DVT Prophylaxis -haparin/protonix <Ismael Swain - Last Filed: 07/11/17 17:48> Objective - Vital Signs/Intake and Output Vital Signs (last 24 hours): Temp Pulse Resp BP Pulse Ox 97.8 F 57 L 18 175/89 H 96 07/05/17 08:58 07/05/17 08:58 07/05/17 08:58 07/05/17 08:58 07/05/17 08:58 - Labs Labs: 07/05/17 07:42 07/05/17 07:42 PT 12.2 Seconds (9.9-11.8) H 07/02/17 20:50 INR 1.13 (0.93-1.08) H 07/02/17 20:50 APTT 31.8 Seconds (23.7-30.8) H 07/02/17 20:50 Attending/Attestation - Attestation I have personally seen and examined this patient.: Yes I have fully participated in the care of the patient.: Yes I have reviewed all pertinent clinical information, including history, physical exam and plan: Yes Notes (Text): 07/11/17 17:48 Medical record note made by the resident after discussion with my direction and input after the patient was personally seen and examined by me. I have reviewed the chart and agree that the record accurately reflects by personal performance of the history, physical exam, data review, and medical decision-making, in the course for the patient. I have also personally directed the plan of care.
--- NOTE | 2017-07-04 17:59 | CP.PCM.PN ---
Subjective - Date & Time of Evaluation Date of Evaluation: 07/04/17 Time of Evaluation: 10:55 - Subjective Subjective: Comfortable, not in distress, afebrile. Objective - Vital Signs/Intake and Output Vital Signs (last 24 hours): Temp Pulse Resp BP Pulse Ox 97.7 F 62 20 150/70 95 07/04/17 06:00 07/04/17 06:00 07/04/17 06:00 07/04/17 06:00 07/04/17 06:00 Intake and Output: 07/04/17 07/04/17 06:59 18:59 Intake Total 780 Balance 780 - Medications Medications: Current Medications Aspirin (Ecotrin) 81 mg PO DAILY [facility] Last Admin: 07/03/17 09:58 Dose: 81 mg Atorvastatin Calcium (Lipitor) 40 mg PO DAILY [facility] Last Admin: 07/03/17 09:57 Dose: 40 mg Colchicine (Colocrys) 0.6 mg PO DAILY [facility] Last Admin: 07/03/17 09:57 Dose: 0.6 mg Donepezil HCl (Aricept) 10 mg PO DAILY [facility] Last Admin: 07/03/17 09:57 Dose: 10 mg Escitalopram Oxalate (Lexapro) 20 mg PO DAILY [facility] Last Admin: 07/03/17 09:57 Dose: 20 mg Sodium Chloride (Sodium Chloride 0.9%) 1,000 mls @ 100 mls/hr IV .Q10H [facility] Last Admin: 07/03/17 17:44 Dose: 100 mls/hr Ceftriaxone Sodium (Rocephin 1 Gram Ivpb) 1 gm in 100 mls @ 100 mls/hr IVPB DAILY [facility] PRN Reason: Protocol Stop: 07/13/17 14:31 Last Admin: 07/03/17 15:21 Dose: 100 mls/hr Vancomycin HCl (Vancomycin 1gm) 1 gm in 250 mls @ 167 mls/hr IVPB Q12H [facility] PRN Reason: Protocol Stop: 07/17/17 14:31 Last Admin: 07/04/17 06:23 Dose: 167 mls/hr Levothyroxine Sodium (Synthroid) 112 mcg PO 0600 [facility] Last Admin: 07/04/17 06:23 Dose: 112 mcg Memantine (Namenda) 5 mg PO BID [facility] Last Admin: 07/03/17 17:46 Dose: 5 mg Morphine Sulfate (Morphine) 2 mg IVP Q4H PRN PRN Reason: Pain, severe (8-10) Prednisone (Prednisone Tab) 40 mg PO DAILY [facility] Last Admin: 07/03/17 09:57 Dose: 40 mg - Labs Labs: 07/04/17 06:10 07/04/17 06:10 PT 12.2 Seconds (9.9-11.8) H 07/02/17 20:50 INR 1.13 (0.93-1.08) H 07/02/17 20:50 APTT 31.8 Seconds (23.7-30.8) H 07/02/17 20:50 - Constitutional Appears: Non-toxic, No Acute Distress - Head Exam Head Exam: NORMAL INSPECTION - Neck Exam Neck Exam: absent: Meningismus - Respiratory Exam Respiratory Exam: Decreased Breath Sounds - Cardiovascular Exam Cardiovascular Exam: +S1, +S2 - GI/Abdominal Exam GI & Abdominal Exam: Soft. absent: Tenderness - Extremities Exam Additional comments: left wrist with some swelling Assessment and Plan - Assessment and Plan (Free Text) Plan: Assessment Sepsis with left wrist cellulitis and tenosynovitis R/O ligamentous tear; also noted fluid collection which are more likely cysts history of gout dyslipidemia hypothyroidism HTN breast cancer history of UTI Plan Continue Vancomycin and Rocephin day 2; reviewed MRI results - follow up further Orthopedic plans will continue to monitor clinically
[2017-07-04] MEDS ORDERED: MethylPREDNISolone 40 mg Vial IM ONE (22:00)
[2017-07-05] MEDS: Vancomycin 1gm in NS 250ml 1 GM/250 ML BAG IVPB SCH ×2 (02:06→14:08)
[2017-07-05] MEDS: Sodium Chloride 0.9% 1,000 ML IV SCH (03:30)
[2017-07-05] MEDS: Levothyroxine 112 MCG TAB PO SCH (05:55)
[2017-07-05] MEDS ORDERED: Pantoprazole 40 mg EC Tab PO SCH (06:00)
[2017-07-05 07:56] LABS: GRAN # 4.51 (1.4-6.5); GRAN % 65.8 % (50.0-68.0); LYMPH # 1.2 (1.2-3.4); LYMPH % 17.6 % (22.0-35.0); MEAN CELL VOLUME 89.8 fl (80.0-105.0); MEAN CORPUSCULAR HEMOGLOBIN 29.4 pg (25.0-35.0); MEAN CORPUSCULAR HGB CONC 32.8 g/dl (31.0-37.0); MEAN PLATELET VOLUME 10.5 fl (7.0-11.0); MONO # 1.1 (0.1-0.6); MONO % 16.6 % (1.0-6.0); RED CELL DISTRIBUTION WIDTH 14.9 % (11.5-14.5); WHITE BLOOD COUNT 6.9 10^3/ul (4.5-11.0)
[2017-07-05 08:27] LABS: ALB/GLOB RATIO 1.1 (1.1-1.8); ALKALINE PHOSPHATASE 92 U/L (38-126); ALT/SGPT 39 U/L (7-56); AST/SGOT 46 U/L (14-36); BILIRUBIN,TOTAL 0.4 mg/dL (0.2-1.3); BLOOD UREA NITROGEN 17 mg/dL (7-21); CALCIUM 8.4 mg/dL (8.4-10.5); CARBON DIOXIDE 24 mmol/L (21-33); CHLORIDE 111 mmol/L (98-107); GFR AFRICAN-AMERICAN > 60; GLUCOSE,RANDOM 106 mg/dL (70-110); MAGNESIUM 2.2 mg/dL (1.7-2.2); PHOSPHOROUS 1.8 mg/dL (2.5-4.5); POTASSIUM 3.6 mmol/L (3.6-5.0); SODIUM 142 mmol/L (132-148); TOTAL PROTEIN 5.9 g/dL (5.8-8.3)
[2017-07-05 08:59] VITALS: BP 175/89; PULSE 57; RESP 18; TEMP 97.8; O2SAT 96
[2017-07-05] MEDS: cefTRIAXone 1 gm 1 GM/100 ML BAG IVPB SCH (09:32)
--- NOTE | 2017-07-05 15:00 | CP.PCM.PN ---
Subjective - Date & Time of Evaluation Date of Evaluation: 07/05/17 Time of Evaluation: 11:30 - Subjective Subjective: Comfortable, much improved pain on the left wrist and able to move it better, no fevers overnight. Objective - Vital Signs/Intake and Output Vital Signs (last 24 hours): Temp Pulse Resp BP Pulse Ox 97.8 F 57 L 18 175/89 H 96 07/05/17 08:58 07/05/17 08:58 07/05/17 08:58 07/05/17 08:58 07/05/17 08:58 Intake and Output: 07/05/17 07/05/17 06:59 18:59 Intake Total 620 Balance 620 - Medications Medications: Current Medications Aspirin (Ecotrin) 81 mg PO DAILY [facility] Last Admin: 07/05/17 09:35 Dose: 81 mg Atorvastatin Calcium (Lipitor) 40 mg PO DAILY [facility] Last Admin: 07/05/17 09:35 Dose: 40 mg Colchicine (Colocrys) 0.6 mg PO DAILY [facility] Last Admin: 07/05/17 09:35 Dose: 0.6 mg Donepezil HCl (Aricept) 10 mg PO DAILY [facility] Last Admin: 07/05/17 09:35 Dose: 10 mg Escitalopram Oxalate (Lexapro) 20 mg PO DAILY [facility] Last Admin: 07/05/17 09:35 Dose: 20 mg Heparin Sodium (Porcine) (Heparin) 5,000 units SC Q12 [facility] PRN Reason: Protocol Last Admin: 07/05/17 09:34 Dose: 5,000 units Sodium Chloride (Sodium Chloride 0.9%) 1,000 mls @ 100 mls/hr IV .Q10H [facility] Last Admin: 07/05/17 03:30 Dose: 100 mls/hr Ceftriaxone Sodium (Rocephin 1 Gram Ivpb) 1 gm in 100 mls @ 100 mls/hr IVPB DAILY [facility] PRN Reason: Protocol Stop: 07/13/17 14:31 Last Admin: 07/05/17 09:32 Dose: 100 mls/hr Vancomycin HCl (Vancomycin 1gm) 1 gm in 250 mls @ 167 mls/hr IVPB Q12H [facility] PRN Reason: Protocol Stop: 07/17/17 14:31 Last Admin: 07/05/17 02:06 Dose: 167 mls/hr Levothyroxine Sodium (Synthroid) 112 mcg PO 0600 [facility] Last Admin: 07/05/17 05:55 Dose: 112 mcg Memantine (Namenda) 5 mg PO BID [facility] Last Admin: 07/05/17 09:36 Dose: 5 mg Morphine Sulfate (Morphine) 2 mg IVP Q4H PRN PRN Reason: Pain, severe (8-10) Last Admin: 07/04/17 10:11 Dose: 2 mg Pantoprazole Sodium (Protonix Ec Tab) 40 mg PO 0600 [facility] Last Admin: 07/05/17 05:55 Dose: 40 mg Prednisone (Prednisone Tab) 40 mg PO DAILY [facility] Last Admin: 07/05/17 09:35 Dose: 40 mg - Labs Labs: 07/05/17 07:42 07/05/17 07:42 PT 12.2 Seconds (9.9-11.8) H 07/02/17 20:50 INR 1.13 (0.93-1.08) H 07/02/17 20:50 APTT 31.8 Seconds (23.7-30.8) H 07/02/17 20:50 - Constitutional Appears: Non-toxic, No Acute Distress - Head Exam Head Exam: NORMAL INSPECTION - Neck Exam Neck Exam: absent: Meningismus - Respiratory Exam Respiratory Exam: Decreased Breath Sounds - Cardiovascular Exam Cardiovascular Exam: +S1, +S2 - GI/Abdominal Exam GI & Abdominal Exam: Soft. absent: Tenderness - Extremities Exam Additional comments: decreased swelling and better range of motion of the left wrist Assessment and Plan - Assessment and Plan (Free Text) Plan: Assessment Sepsis with left wrist cellulitis and tenosynovitis with ligamentous tear, clinically improving especially with injection of steroids into wrist area; also noted fluid collection which are more likely cysts history of gout dyslipidemia hypothyroidism HTN breast cancer history of UTI Plan on Vancomycin and Rocephin day 3; reviewed MRI results - if no further in- patient Orthopedic plans, may switch patient to Doxycycline and Augmentin for another 7 days
--- NOTE | 2017-07-05 15:33 | CP.PCM.PN ---
Subjective - Date & Time of Evaluation Date of Evaluation: 07/05/17 Time of Evaluation: 15:30 - Subjective Subjective: Pt awake, alert. Pt feels much better. Afebrile,VSS L wrist: swelling significantly improved minimal tenderness to palpation patient actively moving wrist without pain AROM 45 deg of extension, 35 deg of flexion grossly NVI Pt clinically improved Can f/u as outpatient in 1 week Objective - Vital Signs/Intake and Output Vital Signs (last 24 hours): Temp Pulse Resp BP Pulse Ox 97.8 F 57 L 18 175/89 H 96 07/05/17 08:58 07/05/17 08:58 07/05/17 08:58 07/05/17 08:58 07/05/17 08:58 Intake and Output: 07/05/17 07/05/17 06:59 18:59 Intake Total 620 480 Balance 620 480 - Medications Medications: Current Medications Aspirin (Ecotrin) 81 mg PO DAILY [facility] Last Admin: 07/05/17 09:35 Dose: 81 mg Atorvastatin Calcium (Lipitor) 40 mg PO DAILY [facility] Last Admin: 07/05/17 09:35 Dose: 40 mg Colchicine (Colocrys) 0.6 mg PO DAILY [facility] Last Admin: 07/05/17 09:35 Dose: 0.6 mg Donepezil HCl (Aricept) 10 mg PO DAILY [facility] Last Admin: 07/05/17 09:35 Dose: 10 mg Escitalopram Oxalate (Lexapro) 20 mg PO DAILY [facility] Last Admin: 07/05/17 09:35 Dose: 20 mg Heparin Sodium (Porcine) (Heparin) 5,000 units SC Q12 [facility] PRN Reason: Protocol Last Admin: 07/05/17 09:34 Dose: 5,000 units Sodium Chloride (Sodium Chloride 0.9%) 1,000 mls @ 100 mls/hr IV .Q10H [facility] Last Admin: 07/05/17 03:30 Dose: 100 mls/hr Ceftriaxone Sodium (Rocephin 1 Gram Ivpb) 1 gm in 100 mls @ 100 mls/hr IVPB DAILY [facility] PRN Reason: Protocol Stop: 07/13/17 14:31 Last Admin: 07/05/17 09:32 Dose: 100 mls/hr Vancomycin HCl (Vancomycin 1gm) 1 gm in 250 mls @ 167 mls/hr IVPB Q12H [facility] PRN Reason: Protocol Stop: 07/17/17 14:31 Last Admin: 07/05/17 02:06 Dose: 167 mls/hr Levothyroxine Sodium (Synthroid) 112 mcg PO 0600 [facility] Last Admin: 07/05/17 05:55 Dose: 112 mcg Memantine (Namenda) 5 mg PO BID [facility] Last Admin: 07/05/17 09:36 Dose: 5 mg Morphine Sulfate (Morphine) 2 mg IVP Q4H PRN PRN Reason: Pain, severe (8-10) Last Admin: 07/04/17 10:11 Dose: 2 mg Pantoprazole Sodium (Protonix Ec Tab) 40 mg PO 0600 [facility] Last Admin: 07/05/17 05:55 Dose: 40 mg Prednisone (Prednisone Tab) 40 mg PO DAILY [facility] Last Admin: 07/05/17 09:35 Dose: 40 mg - Labs Labs: 07/05/17 07:42 07/05/17 07:42 PT 12.2 Seconds (9.9-11.8) H 07/02/17 20:50 INR 1.13 (0.93-1.08) H 07/02/17 20:50 APTT 31.8 Seconds (23.7-30.8) H 07/02/17 20:50
[2017-07-05] MEDS ORDERED: Amoxicillin-Clav 875-125 mg Tab PO STA (16:44)
--- NOTE | 2017-07-05 17:11 | CP.PCM.DIS ---
<Russell Bailey - Last Filed: 07/05/17 17:40> Provider - Provider Date of Admission: 07/02/17 23:14 Attending physician: Gui Reyna MD Primary care physician: Gui Reyna MD Time Spent in preparation of Discharge (in minutes): 70 Hospital Course - Lab Results Lab Results: Most Recent Lab Values WBC 6.9 10^3/ul (4.5-11.0) 07/05/17 07:42 RBC 4.01 10^6/uL (3.5-6.1) 07/05/17 07:42 Hgb 11.8 g/dL (12.0-16.0) L 07/05/17 07:42 Hct 36.0 % (36.0-48.0) 07/05/17 07:42 MCV 89.8 fl (80.0-105.0) 07/05/17 07:42 MCH 29.4 pg (25.0-35.0) 07/05/17 07:42 MCHC 32.8 g/dl (31.0-37.0) 07/05/17 07:42 RDW 14.9 % (11.5-14.5) H 07/05/17 07:42 Plt Count 243 10^3/uL (120.0-450.0) 07/05/17 07:42 MPV 10.5 fl (7.0-11.0) 07/05/17 07:42 Gran % 65.8 % (50.0-68.0) 07/05/17 07:42 Lymph % (Auto) 17.6 % (22.0-35.0) L 07/05/17 07:42 [place] % (Auto) 16.6 % (1.0-6.0) H 07/05/17 07:42 Eos % (Auto) 0.0 % (1.5-5.0) L 07/05/17 07:42 Baso % (Auto) 0.0 % (0.0-3.0) 07/05/17 07:42 Gran # 4.51 (1.4-6.5) 07/05/17 07:42 Lymph # 1.2 (1.2-3.4) 07/05/17 07:42 [place] # 1.1 (0.1-0.6) H 07/05/17 07:42 Eos # 0.0 (0.0-0.7) 07/05/17 07:42 Baso # 0.00 K/mm3 (0.0-2.0) 07/05/17 07:42 Neutrophils % (Manual) 57 % (50.0-70.0) 07/02/17 20:50 Band Neutrophils % 6 % (0-2) H 07/02/17 20:50 Lymphocytes % (Manual) 18 % (22.0-35.0) L 07/02/17 20:50 Monocytes % (Manual) 18 % (1.0-6.0) H 07/02/17 20:50 Basophils % (Manual) 1 % (0.0-1.0) 07/02/17 20:50 Platelet Evaluation Normal (NORMAL) 07/02/17 20:50 ESR 54 mm/hr (0.0-20.0) H 07/03/17 06:00 PT 12.2 Seconds (9.9-11.8) H 07/02/17 20:50 INR 1.13 (0.93-1.08) H 07/02/17 20:50 APTT 31.8 Seconds (23.7-30.8) H 07/02/17 20:50 pO2 70 mm/Hg (30-55) H 07/02/17 20:50 VBG pH 7.53 (7.32-7.43) H 07/02/17 20:50 VBG pCO2 28.0 (40-60) L 07/02/17 20:50 VBG HCO3 23.4 mmol/l (21-28) 07/02/17 20:50 VBG Total CO2 24.3 mmol.L (22-28) 07/02/17 20:50 VBG O2 Sat (Calc) 97.8 % (40-65) H 07/02/17 20:50 VBG Base Excess 1.7 mmol/L (0.0-2.0) 07/02/17 20:50 VBG Potassium 4.0 mmol/L (3.6-5.2) 07/02/17 20:50 Sodium 138.0 mmol/L (132-148) 07/02/17 20:50 Chloride 104.0 mmol/L (98-107) 07/02/17 20:50 Glucose 126 mg/dl (65-105) H 07/02/17 20:50 Lactate 1.9 mmol/L (0.7-2.1) 07/02/17 20:50 FiO2 21.0 % 07/02/17 20:50 Sodium 142 mmol/L (132-148) 07/05/17 07:42 Potassium 3.6 mmol/L (3.6-5.0) 07/05/17 07:42 Chloride 111 mmol/L (98-107) H 07/05/17 07:42 Carbon Dioxide 24 mmol/L (21-33) 07/05/17 07:42 Anion Gap 11 (10-20) 07/05/17 07:42 BUN 17 mg/dL (7-21) 07/05/17 07:42 Creatinine 0.7 mg/dL (0.7-1.2) 07/05/17 07:42 Est GFR ( Amer) > 60 07/05/17 07:42 Est GFR (Non-Af Amer) > 60 07/05/17 07:42 Random Glucose 106 mg/dL (70-110) 07/05/17 07:42 Uric Acid 3.6 mg/dL (2.5-6.2) 07/03/17 06:00 Calcium 8.4 mg/dL (8.4-10.5) 07/05/17 07:42 Phosphorus 1.8 mg/dL (2.5-4.5) L 07/05/17 07:42 Magnesium 2.2 mg/dL (1.7-2.2) 07/05/17 07:42 Total Bilirubin 0.4 mg/dL (0.2-1.3) 07/05/17 07:42 AST 46 U/L (14-36) H D 07/05/17 07:42 ALT 39 U/L (7-56) 07/05/17 07:42 Alkaline Phosphatase 92 U/L (38-126) 07/05/17 07:42 Total Protein 5.9 g/dL (5.8-8.3) 07/05/17 07:42 Albumin 3.1 g/dL (3.0-4.8) 07/05/17 07:42 Globulin 2.8 gm/dL 07/05/17 07:42 Albumin/Globulin Ratio 1.1 (1.1-1.8) 07/05/17 07:42 Venous Blood Potassium 4.0 mmol/L (3.6-5.2) 07/02/17 20:50 Urine Color Yellow (YELLOW) 07/02/17 22:10 Urine Appearance Sl cloudy (CLEAR) 07/02/17 22:10 Urine pH 8.0 (4.7-8.0) 07/02/17 22:10 Ur Specific Childs 1.015 (1.005-1.035) 07/02/17 22:10 Urine Protein 30 mg/dL (<30 mg/dL) H 07/02/17 22:10 Urine Glucose (UA) Negative mg/dL (NEGATIVE) 07/02/17 22:10 Urine Ketones 15 mg/dL (NEGATIVE) H 07/02/17 22:10 Urine Blood Large (NEGATIVE) H 07/02/17 22:10 Urine Nitrate Negative (NEGATIVE) 07/02/17 22:10 Urine Bilirubin Negative (NEGATIVE) 07/02/17 22:10 Urine Urobilinogen 1.0 E.U./dL (<1 E.U./dL) H 07/02/17 22:10 Ur Leukocyte Esterase Small Maulik/uL (NEGATIVE) H 07/02/17 22:10 Urine RBC 2 - 5 /hpf (0-2) 07/02/17 22:10 Urine WBC 20 - 25 /hpf (0-6) 07/02/17 22:10 Ur Epithelial Cells 1 - 3 /hpf (0-5) 07/02/17 22:10 Amorphous Sediment Few 07/02/17 22:10 Urine Bacteria Many (NEG) 07/02/17 22:10 Ur Random Uric Acid 31.9 mg/dL 07/05/17 11:04 - Hospital Course Hospital Course: Patient is an 87 year old white female with a past medical history of gout, HLD , hypothyroidism, HTN, breast ca who presents to [facility] on 07/02/17 with complaints of left hand pain which started with a fever of 102 F on 06/30/17, patient took Percocet as per patients family friend and felt 100% better the following day. However on 07/02/17 patient was feeling very ill and complained of pain radiating from the tip of her fingers all the way to her shoulder of her left upper extremity. As per patients family patient was in severe pain despite Percocet, which prompted them to bring her to the ED. They also mentioned immediate swelling of her left hand which appeared suddenly. Patient denied fever, chills, n/v/d, shortness of breath, chest pain, dysuria, dizziness , weakness. Patients wrist was evaluated, xray and MRI were ordered. ID and ortho were consulted. MRI showed some swelling and possible cellulitis. PAtient was started on antibiotic therapy. Ortho gave a injection of steroids to the wrist and placed patient on amber steroids. The swelling and pain improved over the subsequent days and patient was able to move wrist painlessly. Patent received an OT and PT evaluation of her left wrist. She was switch to oral abx on discharge and must continue course for 5 days. Over her course she had an episode of HTN for which she was given hydralazine. She was advised to follow up with her PMD and all questions and concerns were adressed. Discharge Exam - Head Exam Head Exam: NORMAL INSPECTION - Eye Exam Eye Exam: EOMI, Normal appearance - Respiratory Exam Respiratory Exam: Clear to PA & Lateral, NORMAL BREATHING PATTERN - Cardiovascular Exam Cardiovascular Exam: REGULAR RHYTHM, +S1, +S2 - GI/Abdominal Exam GI & Abdominal Exam: Normal Bowel Sounds - Extremities Exam Extremities exam: normal inspection Additional comments: improved left wrist range of motion - Back Exam Back exam: NORMAL INSPECTION - Neurological Exam Neurological exam: Alert, Oriented x3 - Psychiatric Exam Psychiatric exam: Normal Affect - Skin Skin Exam: Normal Color Discharge Plan - Discharge Medications Prescriptions: Amoxicillin/Clavulanate [Augmentin 875 MG-125 MG] 1 tab PO BID 7 Days #14 tab Doxycycline Hyclate 100 mg PO BID 7 Days #14 capsule - Follow Up Plan Condition: STABLE Disposition: HOME/ ROUTINE Instructions: Urinary Tract Infection in Women (DC), Cellulitis (DC), Low Purine Diet (DC), Gout (DC) Referrals: Akin Escudero MD [Staff Provider] - Gui Reyna MD [Primary Care Provider] - <Ismael Swain - Last Filed: 07/11/17 18:15> Provider - Provider Date of Admission: 07/02/17 23:14 Attending physician: Gui Reyna MD Primary care physician: Gui Reyna MD Hospital Course - Lab Results Lab Results: Most Recent Lab Values WBC 6.9 10^3/ul (4.5-11.0) 07/05/17 07:42 RBC 4.01 10^6/uL (3.5-6.1) 07/05/17 07:42 Hgb 11.8 g/dL (12.0-16.0) L 07/05/17 07:42 Hct 36.0 % (36.0-48.0) 07/05/17 07:42 MCV 89.8 fl (80.0-105.0) 07/05/17 07:42 MCH 29.4 pg (25.0-35.0) 07/05/17 07:42 MCHC 32.8 g/dl (31.0-37.0) 07/05/17 07:42 RDW 14.9 % (11.5-14.5) H 07/05/17 07:42 Plt Count 243 10^3/uL (120.0-450.0) 07/05/17 07:42 MPV 10.5 fl (7.0-11.0) 07/05/17 07:42 Gran % 65.8 % (50.0-68.0) 07/05/17 07:42 Lymph % (Auto) 17.6 % (22.0-35.0) L 07/05/17 07:42 [place] % (Auto) 16.6 % (1.0-6.0) H 07/05/17 07:42 Eos % (Auto) 0.0 % (1.5-5.0) L 07/05/17 07:42 Baso % (Auto) 0.0 % (0.0-3.0) 07/05/17 07:42 Gran # 4.51 (1.4-6.5) 07/05/17 07:42 Lymph # 1.2 (1.2-3.4) 07/05/17 07:42 [place] # 1.1 (0.1-0.6) H 07/05/17 07:42 Eos # 0.0 (0.0-0.7) 07/05/17 07:42 Baso # 0.00 K/mm3 (0.0-2.0) 07/05/17 07:42 Neutrophils % (Manual) 57 % (50.0-70.0) 07/02/17 20:50 Band Neutrophils % 6 % (0-2) H 07/02/17 20:50 Lymphocytes % (Manual) 18 % (22.0-35.0) L 07/02/17 20:50 Monocytes % (Manual) 18 % (1.0-6.0) H 07/02/17 20:50 Basophils % (Manual) 1 % (0.0-1.0) 07/02/17 20:50 Platelet Evaluation Normal (NORMAL) 07/02/17 20:50 ESR 54 mm/hr (0.0-20.0) H 07/03/17 06:00 PT 12.2 Seconds (9.9-11.8) H 07/02/17 20:50 INR 1.13 (0.93-1.08) H 07/02/17 20:50 APTT 31.8 Seconds (23.7-30.8) H 07/02/17 20:50 pO2 70 mm/Hg (30-55) H 07/02/17 20:50 VBG pH 7.53 (7.32-7.43) H 07/02/17 20:50 VBG pCO2 28.0 (40-60) L 07/02/17 20:50 VBG HCO3 23.4 mmol/l (21-28) 07/02/17 20:50 VBG Total CO2 24.3 mmol.L (22-28) 07/02/17 20:50 VBG O2 Sat (Calc) 97.8 % (40-65) H 07/02/17 20:50 VBG Base Excess 1.7 mmol/L (0.0-2.0) 07/02/17 20:50 VBG Potassium 4.0 mmol/L (3.6-5.2) 07/02/17 20:50 Sodium 138.0 mmol/L (132-148) 07/02/17 20:50 Chloride 104.0 mmol/L (98-107) 07/02/17 20:50 Glucose 126 mg/dl (65-105) H 07/02/17 20:50 Lactate 1.9 mmol/L (0.7-2.1) 07/02/17 20:50 FiO2 21.0 % 07/02/17 20:50 Sodium 142 mmol/L (132-148) 07/05/17 07:42 Potassium 3.6 mmol/L (3.6-5.0) 07/05/17 07:42 Chloride 111 mmol/L (98-107) H 07/05/17 07:42 Carbon Dioxide 24 mmol/L (21-33) 07/05/17 07:42 Anion Gap 11 (10-20) 07/05/17 07:42 BUN 17 mg/dL (7-21) 07/05/17 07:42 Creatinine 0.7 mg/dL (0.7-1.2) 07/05/17 07:42 Est GFR ( Amer) > 60 07/05/17 07:42 Est GFR (Non-Af Amer) > 60 07/05/17 07:42 Random Glucose 106 mg/dL (70-110) 07/05/17 07:42 Uric Acid 3.6 mg/dL (2.5-6.2) 07/03/17 06:00 Calcium 8.4 mg/dL (8.4-10.5) 07/05/17 07:42 Phosphorus 1.8 mg/dL (2.5-4.5) L 07/05/17 07:42 Magnesium 2.2 mg/dL (1.7-2.2) 07/05/17 07:42 Total Bilirubin 0.4 mg/dL (0.2-1.3) 07/05/17 07:42 AST 46 U/L (14-36) H D 07/05/17 07:42 ALT 39 U/L (7-56) 07/05/17 07:42 Alkaline Phosphatase 92 U/L (38-126) 07/05/17 07:42 Total Protein 5.9 g/dL (5.8-8.3) 07/05/17 07:42 Albumin 3.1 g/dL (3.0-4.8) 07/05/17 07:42 Globulin 2.8 gm/dL 07/05/17 07:42 Albumin/Globulin Ratio 1.1 (1.1-1.8) 07/05/17 07:42 Venous Blood Potassium 4.0 mmol/L (3.6-5.2) 07/02/17 20:50 Urine Color Yellow (YELLOW) 07/02/17 22:10 Urine Appearance Sl cloudy (CLEAR) 07/02/17 22:10 Urine pH 8.0 (4.7-8.0) 07/02/17 22:10 Ur Specific Childs 1.015 (1.005-1.035) 07/02/17 22:10 Urine Protein 30 mg/dL (<30 mg/dL) H 07/02/17 22:10 Urine Glucose (UA) Negative mg/dL (NEGATIVE) 07/02/17 22:10 Urine Ketones 15 mg/dL (NEGATIVE) H 07/02/17 22:10 Urine Blood Large (NEGATIVE) H 07/02/17 22:10 Urine Nitrate Negative (NEGATIVE) 07/02/17 22:10 Urine Bilirubin Negative (NEGATIVE) 07/02/17 22:10 Urine Urobilinogen 1.0 E.U./dL (<1 E.U./dL) H 07/02/17 22:10 Ur Leukocyte Esterase Small Maulik/uL (NEGATIVE) H 07/02/17 22:10 Urine RBC 2 - 5 /hpf (0-2) 07/02/17 22:10 Urine WBC 20 - 25 /hpf (0-6) 07/02/17 22:10 Ur Epithelial Cells 1 - 3 /hpf (0-5) 07/02/17 22:10 Amorphous Sediment Few 07/02/17 22:10 Urine Bacteria Many (NEG) 07/02/17 22:10 Ur Random Uric Acid 31.9 mg/dL 07/05/17 11:04 Attending/Attestation - Attestation I have personally seen and examined this patient.: Yes I have fully participated in the care of the patient.: Yes I have reviewed all pertinent clinical information, including history, physical exam and plan: Yes Notes (Text): 07/11/17 18:15 Medical record note made by the resident after discussion with my direction and input after the patient was personally seen and examined by me. I have reviewed the chart and agree that the record accurately reflects by personal performance of the history, physical exam, data review, and medical decision-making, in the course for the patient. I have also personally directed the plan of care.
--- NOTE | 2017-07-07 14:32 | PQF SEPSIS ---
07/07/17 Dr. Swain/Maribell, Sepsis is documented on ID consult of 07/03 and subsequent ID notes of 07/04 and 07/05. Do you agree, disagree, undetermined with the diagnosis of systemic sepsis for this patient? If you agree, was sepsis present on admission? Thank you. Clarification of your documentation is requested to better reflect the severity of illness and intensity of treatment of your patient. Indicators present [] Temp < 96.8 or > 100.4 [] WBC count > 12,000/mm3 or <000/mm3 or 10% immature neutrophils [] Heart Rate > 90 [] Respiratory Rate > 20 [] Fever or hypothermia [] Chills [] Positive blood cultures [] Hypotension [] Metabolic acidosis (Elevated lactate level, anion gap or reduced blood pH) [] Acute confusion /Altered Mental Status [] Shock [] Other: [] Location in the medical record that reflects the above clinical findings: [] Treatment Provided: [] PHYSICIAN'S RESPONSE Based on your medical judgment of the clinical indicators outlined above, are you treating this patient for a known or suspected: [] Sepsis / Septicemia Please specify organism if known [] [] SIRS (Systemic Inflammatory Response Syndrome) [] Severe Sepsis (Sepsis with Associated Organ Dysfunction) [] Fever of Unknown Origin [] Other, please indicate: [] [] If Unable to Determine, please check the box, sign and date. Present On Admission (POA) Indicator: [] Present at the time of admission [] Not present at the time of admission [] Clinically Undetermined In responding to this query, please exercise your independent professional judgment. The fact that a question is asked does not imply that any particular answer is desired or expected. Thank you for your clarification on this documentation. 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
== END 2017-07-05 18:04 | disposition home or self-care (01) | DRG 603 ==
LOC: ED 19:49 → ERH 23:14 → 3RSO 07-03 01:55
PROVIDERS: ADMIT Internal Medicine; ATTEND Internal Medicine
PROC: 3E0U33Z Introduction of Anti-inflammatory into Joints, Percutaneous Approach (ICD-10-PCS; principal; 2017-07-03)
DX: L03.114 Cellulitis of left upper limb (principal); N39.0 Urinary tract infection, site not specified; I10 Essential (primary) hypertension; E03.9 Hypothyroidism, unspecified; E78.00 Pure hypercholesterolemia, unspecified; E78.5 Hyperlipidemia, unspecified; M10.9 Gout, unspecified; M19.90 Unspecified osteoarthritis, unspecified site; M65.9 Synovitis and tenosynovitis, unspecified; Z85.3 Personal history of malignant neoplasm of breast; Z79.82 Long term (current) use of aspirin; Z87.440 Personal history of urinary (tract) infections; Z90.11 Acquired absence of right breast and nipple; Z88.1 Allergy status to other antibiotic agents; Z87.892 Personal history of anaphylaxis; M25.832 Other specified joint disorders, left wrist; B96.20 Unspecified Escherichia coli [E. coli] as the cause of diseases classified elsewhere

== ENCOUNTER 2017-09-19 15:36 | Inpatient (IN) | payer MEDICARE, OTHER ==
[2017-09-19 15:40] VITALS: BMI 24.0
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
--- NOTE | 2017-09-19 18:06 | RAD ---
PROCEDURE: X-RAY OF THE PELVIS AND BOTH HIPS HISTORY: right hip pain COMPARISON: No prior similar study for comparison TECHNIQUE: AP view of the pelvis ,oblique view of both hips. FINDINGS: There is no evidence of acute fracture. The patient is status post internal fixation at the left hip through intertrochanteric fracture. The hardware are seen at appropriate position. Moderate to mildly severe bilateral hip osteoarthritic changes. IMPRESSION: No evidence of acute fracture. Status post internal fixation of left hip due to intertrochanteric fracture.
--- NOTE | 2017-09-19 18:09 | RAD ---
PROCEDURE: X-ray of the left femur HISTORY: leg pain s/p trauma COMPARISON: No prior similar study for comparison TECHNIQUE: AP views of the left femur FINDINGS: Patient is status post internal fixation due to intertrochanteric fracture. The hardware are seen at appropriate position. No evidence of acute fracture in the left femur shaft. IMPRESSION: Status post internal fixation of the proximal left femur due to intertrochanteric fracture. The hardware are seen at appropriate position.
--- NOTE | 2017-09-19 18:14 | RAD ---
PROCEDURE: Left Knee Radiographs. HISTORY: Pain. COMPARISON: None. FINDINGS: BONES: Normal. No fracture. There is diffuse osteopenia. JOINTS: Moderate osteoarthritic changes noted. JOINT EFFUSION: There is a suprapatellar small joint effusion P OTHER FINDINGS: None. IMPRESSION: No evidence of acute fracture or dislocation. Moderate osteoarthritic changes.
[2017-09-19 18:39] LABS: BASO # 0.02 K/mm3 (0.0-2.0); BASO % 0.5 % (0.0-3.0); EOS # 0.1 (0.0-0.7); EOS % 2.1 % (1.5-5.0); GRAN # 0.69 (1.4-6.5); HEMATOCRIT 39.4 % (36.0-48.0); LYMPH # 1.6 (1.2-3.4); LYMPH % 40.9 % (22.0-35.0); MEAN CELL VOLUME 92.5 fl (80.0-105.0); MEAN CORPUSCULAR HGB CONC 32.5 g/dl (31.0-37.0); MEAN PLATELET VOLUME 10.6 fl (7.0-11.0); MONO # 1.5 (0.1-0.6); MONO % 38.5 % (1.0-6.0); PLATELET COUNT 238 10^3/uL (120.0-450.0); RED CELL DISTRIBUTION WIDTH 14.6 % (11.5-14.5); WHITE BLOOD COUNT 3.8 10^3/ul (4.5-11.0)
[2017-09-19 18:53] LABS: ALB/GLOB RATIO 1.2 (1.1-1.8); ALKALINE PHOSPHATASE 86 U/L (38-126); ALT/SGPT 24 U/L (7-56); AST/SGOT 37 U/L (14-36); BILIRUBIN,TOTAL 0.9 mg/dL (0.2-1.3); BLOOD UREA NITROGEN 19 mg/dL (7-21); CALCIUM 9.1 mg/dL (8.4-10.5); CARBON DIOXIDE 26 mmol/L (21-33); CHLORIDE 105 mmol/L (98-107); GFR AFRICAN-AMERICAN > 60; GLUCOSE,RANDOM 96 mg/dL (70-110); SODIUM 140 mmol/L (132-148); TOTAL PROTEIN 6.7 g/dL (5.8-8.3)
[2017-09-19 19:16] LABS: ATYPICAL LYMPHOCYTE 3 % (0.0-0.0); BAND 4 % (0-2); BASOPHIL 1 % (0.0-1.0); EOSINOPHIL 4 % (0.0-3.0); NEUTROPHIL 12 % (50.0-70.0)
[2017-09-19 19:25] LABS: PLATELET ESTIMATE NORMAL (NORMAL)
--- NOTE | 2017-09-20 03:22 | CP.PCM.HP ---
History of Present Illness - History of Present Illness History of Present Illness: Lucy Chavis DO PGY1 - Internal Medicine H&P CC: Left leg pain HPI: 87 yo F with PMH of gout, HLD, hypothyroidism, HTN, and breast CA presents complaining of left leg pain. Pain started yesterday, immediately after a hard landing on her left leg when stepping off of a bus. She also admits to weakness and joint instability in her knee/ankle. She Feels the pain from her hip down to her foot, but worse from the knee, down. She denies any back pain, numbness, parasthesias, saddle anaesthesia, urinary incontinence, bowel incontinence. She also denies chest pain, shortness of breath, fever, chills, confusion, headache , nausea, vomiting, abdominal pain. Remainder of 12 point ROS was negative. PMH: As above PSH: Multiple orthopedic surgeries (L hip ORIF, Left arm ORIF) Soc: Denies tobacco, alcohol, or illicits Fhx: Non-contributory All: Levofloxacin Present on Admission - Present on Admission Any Indicators Present on Admission: No Past Patient History - Infectious Disease Hx of Infectious Diseases: None - Past Social History Smoking Status: Never Smoked - CARDIAC Hx Cardiac Disorders: Yes Hx Hypertension: Yes - PULMONARY Hx Respiratory Disorders: No - NEUROLOGICAL Hx Neurological Disorder: No - HEENT Hx HEENT Problems: No - RENAL Hx Chronic Kidney Disease: No - ENDOCRINE/METABOLIC Hx Hypothyroidism: Yes - HEMATOLOGICAL/ONCOLOGICAL Hx Blood Disorders: Yes Hx Cancer: Yes (breast CA) - INTEGUMENTARY Hx Dermatological Problems: No - MUSCULOSKELETAL/RHEUMATOLOGICAL Hx Falls: Yes - GASTROINTESTINAL Hx Gastrointestinal Disorders: No - GENITOURINARY/GYNECOLOGICAL Hx Genitourinary Disorders: Yes Hx Urinary Tract Infection: Yes - PSYCHIATRIC Hx Substance Use: No - SURGICAL HISTORY Hx Mastectomy: Yes (RIGHT) - ANESTHESIA Hx Anesthesia Reactions: No Hx Malignant Hyperthermia: No Meds Allergies/Adverse Reactions: Allergies Allergy/AdvReac Type Severity Reaction Status Date / Time levofloxacin [From Levaquin] Allergy ANAPHYLAXIS Verified 03/22/16 22:48 Physical Exam - Constitutional Appears: Non-toxic, No Acute Distress - Head Exam Head Exam: ATRAUMATIC, NORMOCEPHALIC - Eye Exam Eye Exam: EOMI, Normal appearance, PERRL - ENT Exam ENT Exam: Mucous Membranes Moist - Neck Exam Neck exam: Positive for: Normal Inspection - Respiratory Exam Respiratory Exam: Clear to Auscultation Bilateral, NORMAL BREATHING PATTERN - Cardiovascular Exam Cardiovascular Exam: RRR, +S1, +S2 - GI/Abdominal Exam GI & Abdominal Exam: Normal Bowel Sounds, Soft. absent: Distended, Firm, Guarding, Organomegaly, Rigid, Tenderness - Extremities Exam Extremities exam: Positive for: full ROM, tenderness (Mild left hip, left mid- anterior thigh, left ankle). Negative for: calf tenderness, pedal edema - Neurological Exam Neurological exam: Alert, CN II-XII Intact, Oriented x3 - Psychiatric Exam Psychiatric exam: Normal Affect, Normal Mood - Skin Skin Exam: Dry, Intact, Normal Color Results - Vital Signs Recent Vital Signs: Last Vital Signs Temp 98.0 F 09/19/17 20:32 Pulse 69 09/19/17 20:32 Resp 16 09/19/17 23:25 BP 129/88 09/19/17 20:32 Pulse Ox 99 09/19/17 20:44 - Labs Result Diagrams: 09/19/17 18:20 09/19/17 18:20 Assessment & Plan - Assessment and Plan (Free Text) Assessment: 87 yo F with MH of HTN, HLD, gout, hypothyroidism, and prior breast cancer, now presents with left leg pain s/p hard landing. Plan Left leg pain - Patient reports that pain started after a hard landing when getting out a but yesterday. Improved slightly after taking 2 naproxen - Patient had XR of hips, femur, and knee in the ER, all negative except for hardware noted in left femur. - Considering age and mechanism of injury, ordered lumbar XR to r/o vertebral compression fractures - No LE swelling, no calf tenderness, but considering location of pain ordered LE duplex to r/o DVT - Start Motrin for pain - Initiate fall precautions - Requested orthopedic consult, appreciate recs h/o HTN - VSS on admission - Resume home medications h/o HLD - Continue home statin - Heart healthy diet h/o Gout - Continue home febuxostat Hypothyroidism - No overt signs of iatrogenic hypo/hyperthyroidism - Continue home medicine ?Dementia/depression - Patient takes Aricept, Namenda, and Lexapro at home, without documented history of dementia in EMR - Continue home meds GI Ppx: Protonix DVT Ppx: Heparin Patient case discussed and reviewed with attending, Dr. Swain
[2017-09-20 07:20] LABS: BASO # 0.04 K/mm3 (0.0-2.0); BASO % 1.1 % (0.0-3.0); EOS # 0.1 (0.0-0.7); EOS % 1.6 % (1.5-5.0); GRAN # 0.9 (1.4-6.5); GRAN % 23.7 % (50.0-68.0); HEMATOCRIT 38.5 % (36.0-48.0); LYMPH # 1.2 (1.2-3.4); LYMPH % 31.1 % (22.0-35.0); MEAN CELL VOLUME 92.1 fl (80.0-105.0); MEAN CORPUSCULAR HEMOGLOBIN 29.7 pg (25.0-35.0); MEAN CORPUSCULAR HGB CONC 32.2 g/dl (31.0-37.0); MEAN PLATELET VOLUME 10.6 fl (7.0-11.0); MONO # 1.6 (0.1-0.6); MONO % 42.5 % (1.0-6.0); RED CELL DISTRIBUTION WIDTH 14.5 % (11.5-14.5); WHITE BLOOD COUNT 3.8 10^3/ul (4.5-11.0)
[2017-09-20 07:34] LABS: ALB/GLOB RATIO 1.1 (1.1-1.8); ALKALINE PHOSPHATASE 87 U/L (38-126); ALT/SGPT 21 U/L (7-56); AST/SGOT 38 U/L (14-36); BILIRUBIN,TOTAL 1.1 mg/dL (0.2-1.3); BLOOD UREA NITROGEN 16 mg/dL (7-21); CALCIUM 8.8 mg/dL (8.4-10.5); CARBON DIOXIDE 23 mmol/L (21-33); CHLORIDE 106 mmol/L (98-107); GFR AFRICAN-AMERICAN > 60; GLUCOSE,RANDOM 102 mg/dL (70-110); MAGNESIUM 1.9 mg/dL (1.7-2.2); PHOSPHOROUS 2.5 mg/dL (2.5-4.5); POTASSIUM 3.7 mmol/L (3.6-5.0); SODIUM 140 mmol/L (132-148); TOTAL PROTEIN 6.5 g/dL (5.8-8.3)
[2017-09-20] MEDS: Levothyroxine 112 MCG TAB PO SCH (10:14)
[2017-09-20] MEDS: Pantoprazole 40 mg EC Tab PO SCH (10:14)
[2017-09-20] MEDS: Cholecalciferol 1,000 INTLU TAB PO SCH (10:14)
[2017-09-20] MEDS: FEBUXOSTAT PO SCH (10:15)
--- NOTE | 2017-09-20 11:07 | CON ---
DATE: 09/20/2017 INPATIENT CONSULTATION REASON FOR CONSULT: Left lower extremity pain. HISTORY OF PRESENT ILLNESS: Consult is as follows, this is an 87-year-old female who is known to me has a history of having a left hip fractures. She is status post ORIF. She did well. States that she was stepping off the bus and stepped down on her left leg and had some pain in her lower extremity. She says this morning that she is not in a lot of pain at this moment. PHYSICAL EXAMINATION: GENERAL: She is awake, alert, and oriented x3. MUSCULOSKELETAL: Evaluation of left hip, she is able to actively flex the hip without any significant. She is tolerating passive internal or external rotation of the hip without any pain. There is no crepitus. No deformity. Her thigh is soft and nontender. Evaluation of left knee shows that she has no gross deformity. No significant swelling is appreciated. She does have some joint line tenderness. She is able to flex from 0 to about 75 degrees. She is grossly stable with varus and valgus stress. Neurovascular, she is intact distally. SIGNIFICANT STUDIES: X-rays of the pelvis shows no obvious fractures or dislocations. On the left hip, there is an intramedullary nail. She has what looks like a previous intertrochanteric fracture that has essentially healed. Hardware is intact. She does have moderate to severe degenerative changes bilaterally in the hip. Evaluation of the left knee shows no acute fractures or dislocations. Again, she does have some degenerative changes. IMPRESSION: Left lower extremity pain. PLAN: At this time, the patient is comfortable. Recommended pain medication as needed and physical therapy for ambulation. X-rays of the lumbar spine are still pending. We also discussed the possibility of an injection, but for now she wants to hold off this and I agree with this given that she is not in a lot of pain. We will check up. We will follow up on the x-ray with the lumbar spine and if they are negative and stable for discharge home and followup in the office. Akin Escudero MD
--- NOTE | 2017-09-20 13:43 | RAD ---
HISTORY: leg pain Are abort COMPARISON: No prior. FINDINGS: BONES: Diffuse osteopenia. Incompletely visualize lower thoracic or lumbar scoliosis. DISC SPACES: Mild multilevel disc space narrowing, degenerative change. SOFT TISSUES: Normal. OTHER FINDINGS: None. IMPRESSION: No acute findings related to/accounting for the clinical presentation. Additional benign and/or incidental findings described above.
--- NOTE | 2017-09-20 13:45 | RAD ---
PROCEDURE: Radiographs of the Lumbar Spine. HISTORY: leg pain COMPARISON: No prior. FINDINGS: BONES: No visible fractures. Scoliosis, secondary degenerative change at multiple levels. DISC SPACES: Multilevel degenerative changes primarily disc space narrowing and non marginal osteophyte OTHER FINDINGS: Formation fecal impaction IMPRESSION: No acute findings related to/accounting for the clinical presentation.
--- NOTE | 2017-09-20 13:53 | CT ---
PROCEDURE: CT HEAD WITHOUT CONTRAST. HISTORY: fall COMPARISON: 03/22/2016 TECHNIQUE: Axial computed tomography images were obtained through the head/brain without intravenous contrast. Radiation dose: Total exam DLP = 973.67 mGy-cm. This CT exam was performed using one or more of the following dose reduction techniques: Automated exposure control, adjustment of the mA and/or kV according to patient size, and/or use of iterative reconstruction technique. FINDINGS: HEMORRHAGE: No intracranial hemorrhage. BRAIN: No mass effect or edema. Age related senescent change including periventricular small vessel disease. VENTRICLES: Unremarkable. No hydrocephalus. CALVARIUM: Unremarkable. PARANASAL SINUSES: Unremarkable as visualized. No significant inflammatory changes. MASTOID AIR CELLS: Unremarkable as visualized. No inflammatory changes. OTHER FINDINGS: None. IMPRESSION: No acute intracranial abnormalities. No significant findings to account for the clinical presentation. No significant interval change compared to the prior examination(s).
[2017-09-21 07:49] LABS: BASO # 0.02 K/mm3 (0.0-2.0); BASO % 0.6 % (0.0-3.0); EOS # 0.2 (0.0-0.7); EOS % 5.3 % (1.5-5.0); GRAN # 0.45 (1.4-6.5); GRAN % 13.9 % (50.0-68.0); HEMATOCRIT 36.9 % (36.0-48.0); LYMPH # 1.3 (1.2-3.4); LYMPH % 40.4 % (22.0-35.0); MEAN CELL VOLUME 90.9 fl (80.0-105.0); MEAN CORPUSCULAR HEMOGLOBIN 29.8 pg (25.0-35.0); MEAN CORPUSCULAR HGB CONC 32.8 g/dl (31.0-37.0); MEAN PLATELET VOLUME 10.8 fl (7.0-11.0); MONO # 1.3 (0.1-0.6); MONO % 39.8 % (1.0-6.0); RED CELL DISTRIBUTION WIDTH 14.4 % (11.5-14.5); WHITE BLOOD COUNT 3.2 10^3/ul (4.5-11.0)
[2017-09-21 08:21] LABS: ALB/GLOB RATIO 1.1 (1.1-1.8); ALKALINE PHOSPHATASE 120 U/L (38-126); ALT/SGPT 34 U/L (7-56); AST/SGOT 39 U/L (14-36); BILIRUBIN,TOTAL 0.9 mg/dL (0.2-1.3); BLOOD UREA NITROGEN 16 mg/dL (7-21); CALCIUM 8.6 mg/dL (8.4-10.5); CARBON DIOXIDE 23 mmol/L (21-33); CHLORIDE 106 mmol/L (98-107); GFR AFRICAN-AMERICAN > 60; GLUCOSE,RANDOM 88 mg/dL (70-110); POTASSIUM 3.4 mmol/L (3.6-5.0); SODIUM 139 mmol/L (132-148); TOTAL PROTEIN 6.4 g/dL (5.8-8.3); URIC ACID 2.9 mg/dL (2.5-6.2)
[2017-09-21] MEDS ORDERED: Potassium Chloride 40 mEq/30 ml LIQ UD PO ONE (09:06)
[2017-09-21] MEDS: Levothyroxine 112 MCG TAB PO SCH (09:31)
[2017-09-21] MEDS: Cholecalciferol 1,000 INTLU TAB PO SCH (09:32)
[2017-09-21] MEDS: Pantoprazole 40 mg EC Tab PO SCH (09:32)
--- NOTE | 2017-09-21 09:45 | CP.PCM.PN ---
<Clover Bishop - Last Filed: 09/21/17 11:00> Subjective - Date & Time of Evaluation Date of Evaluation: 09/21/17 Time of Evaluation: 09:42 - Subjective Subjective: PGY-2 Medicine progress note Patient seen and examined at bedside. No acute distress, no acute events overnight. Patient continues to have pain in her left lower extremity. She states that her range of motion of the left leg has improved, however she is concerned about walking. She denies any chest pain, sob, headache, n/v, diarrhea , constipation, dysuria. Patient is tolerating diet. Objective - Vital Signs/Intake and Output Vital Signs (last 24 hours): Temp Pulse Resp BP Pulse Ox 98.5 F 72 19 155/85 H 96 09/21/17 07:35 09/21/17 07:35 09/21/17 07:35 09/21/17 07:35 09/21/17 07:35 Intake and Output: 09/21/17 09/21/17 06:59 18:59 Intake Total 360 Output Total 0 Balance 360 - Medications Medications: Current Medications Aspirin (Ecotrin) 81 mg PO DAILY [facility] Last Admin: 09/21/17 09:32 Dose: 81 mg Atorvastatin Calcium (Lipitor) 40 mg PO DIN [facility] Last Admin: 09/20/17 16:51 Dose: 40 mg Cholecalciferol (Vitamin D) 2,000 intlu PO DAILY [facility] Last Admin: 09/21/17 09:32 Dose: 2,000 intlu Donepezil HCl (Aricept) 10 mg PO HS [facility] Last Admin: 09/20/17 21:49 Dose: 10 mg Escitalopram Oxalate (Lexapro) 20 mg PO DAILY [facility] Last Admin: 09/21/17 09:31 Dose: 20 mg Heparin Sodium (Porcine) (Heparin) 5,000 units SC Q8 LASHAWN PRN Reason: Protocol Last Admin: 09/21/17 06:27 Dose: 5,000 units Ibuprofen (Motrin Tab) 400 mg PO Q6H PRN PRN Reason: Pain, Mild (1-3) Last Admin: 09/21/17 06:26 Dose: 400 mg Levothyroxine Sodium (Synthroid) 112 mcg PO DAILY [facility] Last Admin: 09/21/17 09:31 Dose: 112 mcg Losartan Potassium (Cozaar) 50 mg PO DAILY [facility] Last Admin: 09/20/17 10:15 Dose: 50 mg Memantine (Namenda) 5 mg PO BID [facility] Last Admin: 09/21/17 09:32 Dose: 5 mg Metoprolol Tartrate (Lopressor) 25 mg PO BRKDIN [facility] Last Admin: 09/21/17 08:25 Dose: 25 mg Non-Formulary Medication (Febuxostat [Uloric]) 1 tab PO DAILY [facility] Last Admin: 09/20/17 10:15 Dose: Not Given Pantoprazole Sodium (Protonix Ec Tab) 40 mg PO DAILY [facility] Last Admin: 09/21/17 09:32 Dose: 40 mg - Labs Labs: 09/21/17 07:00 09/21/17 07:00 - Constitutional Appears: No Acute Distress - Head Exam Head Exam: ATRAUMATIC, NORMAL INSPECTION, NORMOCEPHALIC - Eye Exam Eye Exam: EOMI, Normal appearance - ENT Exam ENT Exam: Mucous Membranes Moist - Respiratory Exam Respiratory Exam: Clear to Ausculation Bilateral, NORMAL BREATHING PATTERN. absent: Rhonchi, Wheezes, Respiratory Distress - Cardiovascular Exam Cardiovascular Exam: REGULAR RHYTHM. absent: Tachycardia, Murmur - GI/Abdominal Exam GI & Abdominal Exam: Soft, Normal Bowel Sounds. absent: Distended, Firm, Guarding, Tenderness - Extremities Exam Extremities Exam: Normal Inspection, Tenderness (left leg, nidhi with movement ) - Neurological Exam Neurological Exam: Alert, Awake, Oriented x3 - Skin Skin Exam: Dry, Intact, Normal Color, Warm Assessment and Plan - Assessment and Plan (Free Text) Assessment: 87 yo F with MH of HTN, HLD, gout, hypothyroidism, and prior breast cancer, now presents with left leg pain s/p hard landing. Plan: 1. Left leg pain - Patient reports that pain started after a hard landing when getting out a but yesterday. Improved slightly after taking 2 naproxen - Patient had XR of hips, femur, and knee in the ER, all negative except for hardware noted in left femur. - head CT was negative for acute findings - lumbar XRay and thoracic xray negative for fractures - No LE swelling, no calf tenderness, but considering location of pain ordered LE duplex to r/o DVT, pending official read - continue Motrin for pain - fall precautions - Requested orthopedic consult, recommended PT and pain management 2. h/o HTN - VSS on admission - Resume home medications 3. h/o HLD - Continue home statin - Heart healthy diet 4. h/o Gout - uric acie within normal limits - Continue home febuxostat 5. Hypothyroidism - No overt signs of iatrogenic hypo/hyperthyroidism - Continue home medicine 6. Dementia/depression - Patient takes Aricept, Namenda, and Lexapro at home, without documented history of dementia in EMR - Continue home meds GI Ppx: Protonix DVT Ppx: Heparin Patient case discussed and reviewed with attending <Nigel Kline - Last Filed: 09/22/17 10:05> Objective - Vital Signs/Intake and Output Vital Signs (last 24 hours): Temp Pulse Resp BP Pulse Ox 98.3 F 61 20 156/79 H 94 L 09/22/17 08:22 09/22/17 08:22 09/22/17 08:22 09/22/17 09:14 09/22/17 08:22 Intake and Output: 09/22/17 09/22/17 06:59 18:59 Intake Total 240 Balance 240 - Medications Medications: Current Medications Aspirin (Ecotrin) 81 mg PO DAILY [facility] Last Admin: 09/22/17 09:14 Dose: 81 mg Atorvastatin Calcium (Lipitor) 40 mg PO DIN [facility] Last Admin: 09/21/17 17:06 Dose: 40 mg Cholecalciferol (Vitamin D) 2,000 intlu PO DAILY [facility] Last Admin: 09/22/17 09:16 Dose: 2,000 intlu Donepezil HCl (Aricept) 10 mg PO HS [facility] Last Admin: 09/21/17 21:17 Dose: 10 mg Escitalopram Oxalate (Lexapro) 20 mg PO DAILY [facility] Last Admin: 09/22/17 09:14 Dose: 20 mg Heparin Sodium (Porcine) (Heparin) 5,000 units SC Q8 LASHAWN PRN Reason: Protocol Last Admin: 09/22/17 05:17 Dose: 5,000 units Ibuprofen (Motrin Tab) 400 mg PO Q6H PRN PRN Reason: Pain, Mild (1-3) Last Admin: 09/21/17 18:24 Dose: 400 mg Levothyroxine Sodium (Synthroid) 112 mcg PO DAILY [facility] Last Admin: 09/22/17 09:15 Dose: 112 mcg Losartan Potassium (Cozaar) 50 mg PO DAILY [facility] Last Admin: 09/22/17 09:14 Dose: 50 mg Memantine (Namenda) 5 mg PO BID [facility] Last Admin: 09/22/17 09:15 Dose: 5 mg Metoprolol Tartrate (Lopressor) 25 mg PO BRKDIN [facility] Last Admin: 09/22/17 09:17 Dose: 25 mg Non-Formulary Medication (Febuxostat [Uloric]) 1 tab PO DAILY [facility] Last Admin: 09/22/17 09:14 Dose: Not Given Pantoprazole Sodium (Protonix Ec Tab) 40 mg PO DAILY [facility] Last Admin: 09/22/17 09:15 Dose: 40 mg - Labs Labs: 09/22/17 06:00 09/22/17 06:00 Assessment and Plan - Assessment and Plan (Free Text) Assessment: discussed w/ resident at length went over meds labs xray tests condition plans orders reviewed
[2017-09-21] MEDS: FEBUXOSTAT PO SCH (11:22)
[2017-09-21 16:50] VITALS: RESP 20
--- NOTE | 2017-09-21 21:31 | US ---
HISTORY: Leg pain and swelling. Evaluate for DVT PHYSICIAN(S): Jono Heller MD. TECHNIQUE: Duplex sonography and color-flow Doppler with graded compression were used to evaluate the deep venous systems of both lower extremities. FINDINGS: The visualized deep venous systems of both lower extremities are sonographically normal and compressible. Normal wave forms and augmentation are seen. There is no sonographic evidence for deep venous thrombosis in the visualized segments of both lower extremities. IMPRESSION: No sonographic evidence for deep venous thrombosis in the visualized segments of both lower extremities.
[2017-09-22 06:25] VITALS: BP 156/79; PULSE 61; TEMP 98.3; O2SAT 94
[2017-09-22 06:59] LABS: BASO # 0.03 K/mm3 (0.0-2.0); EOS # 0.4 (0.0-0.7); EOS % 11.5 % (1.5-5.0); GRAN # 0.4 (1.4-6.5); GRAN % 12.8 % (50.0-68.0); HEMATOCRIT 37.9 % (36.0-48.0); LYMPH # 1.2 (1.2-3.4); LYMPH % 37.5 % (22.0-35.0); MEAN CELL VOLUME 91.5 fl (80.0-105.0); MEAN CORPUSCULAR HEMOGLOBIN 29.5 pg (25.0-35.0); MEAN CORPUSCULAR HGB CONC 32.2 g/dl (31.0-37.0); MEAN PLATELET VOLUME 11.2 fl (7.0-11.0); MONO # 1.2 (0.1-0.6); MONO % 37.2 % (1.0-6.0); RED CELL DISTRIBUTION WIDTH 14.5 % (11.5-14.5); WHITE BLOOD COUNT 3.1 10^3/ul (4.5-11.0)
[2017-09-22 07:27] LABS: ALKALINE PHOSPHATASE 144 U/L (38-126); ALT/SGPT 70 U/L (7-56); AST/SGOT 86 U/L (14-36); BILIRUBIN,TOTAL 0.6 mg/dL (0.2-1.3); BLOOD UREA NITROGEN 17 mg/dL (7-21); CALCIUM 8.9 mg/dL (8.4-10.5); CARBON DIOXIDE 24 mmol/L (21-33); CHLORIDE 106 mmol/L (98-107); GFR AFRICAN-AMERICAN > 60; GLUCOSE,RANDOM 87 mg/dL (70-110); POTASSIUM 3.6 mmol/L (3.6-5.0); SODIUM 139 mmol/L (132-148); TOTAL PROTEIN 6.3 g/dL (5.8-8.3)
[2017-09-22] MEDS: FEBUXOSTAT PO SCH (09:14)
[2017-09-22] MEDS: Pantoprazole 40 mg EC Tab PO SCH (09:15)
[2017-09-22] MEDS: Levothyroxine 112 MCG TAB PO SCH (09:15)
[2017-09-22] MEDS: Cholecalciferol 1,000 INTLU TAB PO SCH (09:16)
--- NOTE | 2017-09-22 13:01 | CP.PCM.DIS ---
<Harjeet Alegria - Last Filed: 09/22/17 16:53> Provider - Provider Date of Admission: 09/19/17 18:31 Attending physician: Gui Reyna MD Primary care physician: Gui Reyna MD Consults: Orthopedics - Dr. Escudero Time Spent in preparation of Discharge (in minutes): 30 Hospital Course - Lab Results Lab Results: Most Recent Lab Values WBC 3.1 10^3/ul (4.5-11.0) L 09/22/17 06:00 RBC 4.14 10^6/uL (3.5-6.1) 09/22/17 06:00 Hgb 12.2 g/dL (12.0-16.0) 09/22/17 06:00 Hct 37.9 % (36.0-48.0) 09/22/17 06:00 MCV 91.5 fl (80.0-105.0) 09/22/17 06:00 MCH 29.5 pg (25.0-35.0) 09/22/17 06:00 MCHC 32.2 g/dl (31.0-37.0) 09/22/17 06:00 RDW 14.5 % (11.5-14.5) 09/22/17 06:00 Plt Count 261 10^3/uL (120.0-450.0) 09/22/17 06:00 MPV 11.2 fl (7.0-11.0) H 09/22/17 06:00 Gran % 12.8 % (50.0-68.0) L 09/22/17 06:00 Lymph % (Auto) 37.5 % (22.0-35.0) H 09/22/17 06:00 [place] % (Auto) 37.2 % (1.0-6.0) H 09/22/17 06:00 Eos % (Auto) 11.5 % (1.5-5.0) H 09/22/17 06:00 Baso % (Auto) 1.0 % (0.0-3.0) 09/22/17 06:00 Gran # 0.40 (1.4-6.5) L 09/22/17 06:00 Lymph # 1.2 (1.2-3.4) 09/22/17 06:00 [place] # 1.2 (0.1-0.6) H 09/22/17 06:00 Eos # 0.4 (0.0-0.7) 09/22/17 06:00 Baso # 0.03 K/mm3 (0.0-2.0) 09/22/17 06:00 Neutrophils % (Manual) 12 % (50.0-70.0) L 09/19/17 18:20 Band Neutrophils % 4 % (0-2) H 09/19/17 18:20 Lymphocytes % (Manual) 46 % (22.0-35.0) H 09/19/17 18:20 Atypical Lymphs % 3 % (0.0-0.0) H 09/19/17 18:20 Monocytes % (Manual) 30 % (1.0-6.0) H 09/19/17 18:20 Eosinophils % (Manual) 4 % (0.0-3.0) H 09/19/17 18:20 Basophils % (Manual) 1 % (0.0-1.0) 09/19/17 18:20 Platelet Evaluation Normal (NORMAL) 09/19/17 18:20 Sodium 139 mmol/L (132-148) 09/22/17 06:00 Potassium 3.6 mmol/L (3.6-5.0) 09/22/17 06:00 Chloride 106 mmol/L (98-107) 09/22/17 06:00 Carbon Dioxide 24 mmol/L (21-33) 09/22/17 06:00 Anion Gap 13 (10-20) 09/22/17 06:00 BUN 17 mg/dL (7-21) 09/22/17 06:00 Creatinine 0.8 mg/dl (0.7-1.2) 09/22/17 06:00 Est GFR ( Amer) > 60 09/22/17 06:00 Est GFR (Non-Af Amer) > 60 09/22/17 06:00 Random Glucose 87 mg/dL (70-110) 09/22/17 06:00 Uric Acid 2.9 mg/dL (2.5-6.2) 09/21/17 07:00 Calcium 8.9 mg/dL (8.4-10.5) 09/22/17 06:00 Phosphorus 2.5 mg/dL (2.5-4.5) 09/20/17 06:30 Magnesium 1.9 mg/dL (1.7-2.2) 09/20/17 06:30 Total Bilirubin 0.6 mg/dL (0.2-1.3) 09/22/17 06:00 AST 86 U/L (14-36) H D 09/22/17 06:00 ALT 70 U/L (7-56) H 09/22/17 06:00 Alkaline Phosphatase 144 U/L (38-126) H 09/22/17 06:00 Total Protein 6.3 g/dL (5.8-8.3) 09/22/17 06:00 Albumin 3.2 g/dL (3.0-4.8) 09/22/17 06:00 Globulin 3.1 gm/dL 09/22/17 06:00 Albumin/Globulin Ratio 1.0 (1.1-1.8) L 09/22/17 06:00 - Hospital Course Hospital Course: Patient is an 87yo female with history of gout, hyperlipidemia, hypothyroidism, hypertension and breast cancer that originally presented to [facility] c/o left leg pain. Patient had reported that her pain started immediately after a hard landing on her left leg when stepping off of a bus. She also had ensored weakness and joint instability in her knee/ankle. She reported pain from her hip down to her foot exacerbated from the knee down. She denies any back pain, numbness, parasthesias, saddle anaesthesia, urinary incontinence, bowel incontinence. She also denies chest pain, shortness of breath, fever, chills, confusion, headache, nausea, vomiting, abdominal pain. The following workup/results were obtained during the patient's hospital course: 1. Left leg pain - Patient reported that pain started after a hard landing when getting out of a bus the day prior to presentation which improved slightly after taking 2 naproxen - Patient had an xray of the hips, femur, and knee in the ER, all negative except for hardware noted in left femur. (please refer to full reports) - Head CT was negative for acute findings - lumbar xray and thoracic xray negative for fractures - continue Motrin for pain - fall precautions - Orthopedic surgery consulted - Dr. Escudero and recommended physical therapy, pain management and follow up as an outpatient 2. h/o HTN - Resume home medications 3. h/o HLD - Continue home statin - Heart healthy diet 4. h/o Gout - Continue home febuxostat 5. Hypothyroidism - Continue home medicine 6. Dementia/depression - Patient takes Aricept, Namenda, and Lexapro at home GI Ppx: Protonix DVT Ppx: Heparin Patient was seen and case discussed/reviewed with attending, Dr. Kline Discharge Exam - Head Exam Head Exam: ATRAUMATIC, NORMAL INSPECTION, NORMOCEPHALIC - Eye Exam Eye Exam: EOMI, PERRL - ENT Exam ENT Exam: Mucous Membranes Moist - Respiratory Exam Respiratory Exam: Clear to PA & Lateral. absent: Rales, Rhonchi, Wheezes - Cardiovascular Exam Cardiovascular Exam: RRR, +S1, +S2. absent: Gallop, JVD, Rubs - GI/Abdominal Exam GI & Abdominal Exam: Soft. absent: Distended, Firm, Guarding, Rebound, Tenderness - Extremities Exam Extremities exam: normal inspection - Neurological Exam Neurological exam: Alert, CN II-XII Intact, Oriented x3 - Psychiatric Exam Psychiatric exam: Normal Affect, Normal Mood - Skin Skin Exam: Dry, Intact, Normal Color, Warm Discharge Plan - Follow Up Plan Condition: FAIR Disposition: HOME/ ROUTINE Instructions: Urinary Tract Infection in Women (DC), Pain Management in the Elderly (DC) Additional Instructions: 1. Follow up with your primary doctor, Dr. Reyna within 1-2 weeks of discharge 2. Follow up with your orthopedic doctor, Dr. Escudero within 1 week of discharge 3. Continue to take your prescribed medications as directed 4. Return to the emergency room should you have a worsening in your condition or symptoms Referrals: Akin Escudero MD [Staff Provider] - Gui Reyna MD [Primary Care Provider] - <Nigel Kline - Last Filed: 09/23/17 07:56> Provider - Provider Date of Admission: 09/19/17 18:31 Attending physician: Gui Reyna MD Primary care physician: Gui Reyna MD Hospital Course - Lab Results Lab Results: Most Recent Lab Values WBC 3.1 10^3/ul (4.5-11.0) L 09/22/17 06:00 RBC 4.14 10^6/uL (3.5-6.1) 09/22/17 06:00 Hgb 12.2 g/dL (12.0-16.0) 09/22/17 06:00 Hct 37.9 % (36.0-48.0) 09/22/17 06:00 MCV 91.5 fl (80.0-105.0) 09/22/17 06:00 MCH 29.5 pg (25.0-35.0) 09/22/17 06:00 MCHC 32.2 g/dl (31.0-37.0) 09/22/17 06:00 RDW 14.5 % (11.5-14.5) 09/22/17 06:00 Plt Count 261 10^3/uL (120.0-450.0) 09/22/17 06:00 MPV 11.2 fl (7.0-11.0) H 09/22/17 06:00 Gran % 12.8 % (50.0-68.0) L 09/22/17 06:00 Lymph % (Auto) 37.5 % (22.0-35.0) H 09/22/17 06:00 [place] % (Auto) 37.2 % (1.0-6.0) H 09/22/17 06:00 Eos % (Auto) 11.5 % (1.5-5.0) H 09/22/17 06:00 Baso % (Auto) 1.0 % (0.0-3.0) 09/22/17 06:00 Gran # 0.40 (1.4-6.5) L 09/22/17 06:00 Lymph # 1.2 (1.2-3.4) 09/22/17 06:00 [place] # 1.2 (0.1-0.6) H 09/22/17 06:00 Eos # 0.4 (0.0-0.7) 09/22/17 06:00 Baso # 0.03 K/mm3 (0.0-2.0) 09/22/17 06:00 Neutrophils % (Manual) 12 % (50.0-70.0) L 09/19/17 18:20 Band Neutrophils % 4 % (0-2) H 09/19/17 18:20 Lymphocytes % (Manual) 46 % (22.0-35.0) H 09/19/17 18:20 Atypical Lymphs % 3 % (0.0-0.0) H 09/19/17 18:20 Monocytes % (Manual) 30 % (1.0-6.0) H 09/19/17 18:20 Eosinophils % (Manual) 4 % (0.0-3.0) H 09/19/17 18:20 Basophils % (Manual) 1 % (0.0-1.0) 09/19/17 18:20 Platelet Evaluation Normal (NORMAL) 09/19/17 18:20 Sodium 139 mmol/L (132-148) 09/22/17 06:00 Potassium 3.6 mmol/L (3.6-5.0) 09/22/17 06:00 Chloride 106 mmol/L (98-107) 09/22/17 06:00 Carbon Dioxide 24 mmol/L (21-33) 09/22/17 06:00 Anion Gap 13 (10-20) 09/22/17 06:00 BUN 17 mg/dL (7-21) 09/22/17 06:00 Creatinine 0.8 mg/dl (0.7-1.2) 09/22/17 06:00 Est GFR ( Amer) > 60 09/22/17 06:00 Est GFR (Non-Af Amer) > 60 09/22/17 06:00 Random Glucose 87 mg/dL (70-110) 09/22/17 06:00 Uric Acid 2.9 mg/dL (2.5-6.2) 09/21/17 07:00 Calcium 8.9 mg/dL (8.4-10.5) 09/22/17 06:00 Phosphorus 2.5 mg/dL (2.5-4.5) 09/20/17 06:30 Magnesium 1.9 mg/dL (1.7-2.2) 09/20/17 06:30 Total Bilirubin 0.6 mg/dL (0.2-1.3) 09/22/17 06:00 AST 86 U/L (14-36) H D 09/22/17 06:00 ALT 70 U/L (7-56) H 09/22/17 06:00 Alkaline Phosphatase 144 U/L (38-126) H 09/22/17 06:00 Total Protein 6.3 g/dL (5.8-8.3) 09/22/17 06:00 Albumin 3.2 g/dL (3.0-4.8) 09/22/17 06:00 Globulin 3.1 gm/dL 09/22/17 06:00 Albumin/Globulin Ratio 1.0 (1.1-1.8) L 09/22/17 06:00 - Hospital Course Hospital Course: discussed w/ resident at length went over tests plans xrays orders consults plans reviewed
== END 2017-09-22 15:41 | disposition home or self-care (01) | DRG 556 ==
LOC: ED 15:36 → ERH 18:31 → 3RNO 20:51
PROVIDERS: ADMIT Internal Medicine; ATTEND Internal Medicine
DX: M79.605 Pain in left leg (principal); F03.90 Unspecified dementia, unspecified severity, without behavioral disturbance, psychotic disturbance, mood disturbance, and anxiety; E03.9 Hypothyroidism, unspecified; E78.5 Hyperlipidemia, unspecified; I10 Essential (primary) hypertension; M10.9 Gout, unspecified; F32.89 Other specified depressive episodes; I25.10 Atherosclerotic heart disease of native coronary artery without angina pectoris; M25.369 Other instability, unspecified knee; Z79.82 Long term (current) use of aspirin; Z85.3 Personal history of malignant neoplasm of breast; Z87.440 Personal history of urinary (tract) infections; M19.90 Unspecified osteoarthritis, unspecified site; Z90.11 Acquired absence of right breast and nipple; Z88.1 Allergy status to other antibiotic agents; Z87.892 Personal history of anaphylaxis; R40.2412 Glasgow coma scale score 13-15, at arrival to emergency department